=== PATIENT | male | born 1955 | race Caucasian/White ===

== ENCOUNTER → 2018-04-10 14:38 | Outpatient (CLI) | payer OTHER, SELFPAY ==
--- NOTE | 2018-04-10 14:42 | DI.RAD.S_ITS ---
PROCEDURE: XR KNEE LT 3V INDICATIONS: left knee pain TECHNIQUE: 3 views of the knee were acquired. COMPARISON: [facility], , KNEE 3V RIGHT, 07/12/2006, 10:01. [facility], , KNEE 3V LEFT, 07/12/2006, 9:59. FINDINGS: Bones: No fractures or dislocations. No suspicious bony lesions. Soft tissues: No joint effusion. No suspicious soft tissue calcifications. IMPRESSION: No trauma found, source of current symptoms is not seen. Dictated by: Ed Katz M.D. on 04/10/2018 at 16:04 Approved by: Ed Katz M.D. on 04/10/2018 at 16:04
== END ==
PROVIDERS: Family Provider Family Medicine; PCP Family Medicine; Visit Provider Family Medicine
DX: M25.562 Pain in left knee (principal)
CPT/HCPCS: 73562

== ENCOUNTER → 2018-05-03 12:41 | Outpatient (CLI) | payer OTHER, SELFPAY ==
--- NOTE | 2018-05-03 12:43 | DI.RAD.S_ITS ---
PROCEDURE: XR CHEST 2V INDICATIONS: cough TECHNIQUE: 2 views of the chest were acquired. COMPARISON: None. FINDINGS: Surgical changes and devices: None. Lungs and pleura: Lungs are clear. No pleural effusions or pneumothorax. Mediastinum: Mediastinal contours are normal. Heart size is normal. Bones and chest wall: No suspicious bony abnormalities. Soft tissues appear unremarkable. IMPRESSION: Normal chest. Dictated by: Shaina Aranda M.D. on 05/03/2018 at 15:07 Approved by: Shaina Aranda M.D. on 05/03/2018 at 15:08
== END ==
PROVIDERS: Family Provider Family Medicine; PCP Family Medicine; Visit Provider Physician Assistant
DX: R05 Cough (principal)
CPT/HCPCS: 71046

== ENCOUNTER 2018-07-01 12:15 | Outpatient (RCR) | payer OTHER, SELFPAY ==
--- NOTE | 2018-05-15 11:00 | PT.OPPOC ---
Current Diagnoses Pain in left knee (05/15/18) Provider Visit Care Team Role Provider Type Emre Smith MD Attending Provider Physician Primary Care Provider Specialty: Family Practice Address: [address] [place] [address], [facility] Email: [email or web address] Plan Of Care PT-OP-T Assessment and Plan Start: 05/15/18 10:25 Freq: Status: Active Protocol: Document 05/15/18 10:27 ELENA (Rec: 05/15/18 10:29 ELENA [id number]) Physical Therapy Assessment Rehab Potential Rehabilitation Potential Good Evaluation Complexity Number of Personal Factors/Comorbidities 1-2 Number of Body Systems Impaired 1-2 Clinical Presentation at Evaluation Stable Impairments Impairments Activity Tolerance Functional Mobility Gait Pain ROM Soft Tissue Mobility Strength Goals Four Impairment Impaired stairs descent Inspector Ball Points Goal (LTG) Patient will descend stairs with alternating steps with no difficulty LTG Duration 4 wks Three Impairment Impaired distance ambulation tolerance Long-Term Goal (LTG) Patient will ambulate > 4 miles per day with no increase to left knee symptoms. LTG Duration 4 wks Two Impairment Impaired muscular flexibility Inspector Ball Points Goal (LTG) Patient will exhibit no flexibility limitation to both quads to decrease muscular imbalance for patellar tracking improvement LTG Duration 4 wks One Impairment No HEP in place Inspector Ball Points Goal (LTG) Patient will learn independent home exercise program LTG Duration 3 wks Assessment Summary Assessment Pleasant 63 y/o M patient with a referring diagnosis of left knee pain presented today with gait difficulty due to left knee pain. Assessment reveals tight both quads, decreased stance phase to left LE, difficulty with functional single leg squat, and positive with Castro's tests (Patellofemoral joint dysfunction). Due to above mentioned dysfunction, patient unable to perform long distance mobility which is supposed to be normal to his age. In my professional opinion, patient would benefit with skilled PT to improve patient's quality of life. Physical Therapy Plan Frequency and Duration Frequency of Treatment 1x/Week Duration of Treatment 6 wks Plan of Care Start Date 05/15/18 Plan of Care End Date 06/26/18 Therapeutic Interventions Therapeutic Interventions Gait Training Joint Mobilizations Manual Therapy Patient/Caregiver Education Self-Care/Home Management Soft Tissue Mobilization Taping Therapeutic Exercises Modalities Cold Pack/Ice Massage Electric Stimulation Hot Packs Next Visit Focus/Plan Next Note Type Treatment Note Next Visit Plan Review HEP. Strengthen both knees, flexibility exercises Plan of Care Dates Plan of Care Start Date 05/15/18 Plan of Care End Date 06/26/18 Please Sign and Return: I have reviewed this Plan of Care and certify that the skilled therapy services above are required to meet the patient?s needs. Physician Signature Date Printed Name and Credentials Clinical Instructor Signature Printed Name and Credentials
--- NOTE | 2018-05-15 11:00 | PT.OIE ---
Current Diagnoses Pain in left knee (05/15/18) Provider Visit Care Team Role Provider Type Emre Smith MD Attending Provider Physician Primary Care Provider Specialty: [facility] Address: [address] [place] [address], [facility] Email: [email or web address] Physical Therapy Initial Evaluation PT-OP-A Visit Information Start: 05/15/18 10:25 Freq: Status: Active Protocol: Document 05/15/18 17:00 EA (Rec: 05/15/18 17:09 EA [id number]) Out-Patient Physical Therapy Visit Information Visit Information Visit Type Initial Evaluation Visit Start Time 10:30 Visit Stop Time 11:10 Total Visit Minutes 40 Visit Number 1 Evaluation Information Evaluation Date 05/15/18 PT-OP-B Current Condition Start: 05/15/18 10:25 Freq: Status: Active Protocol: Document 05/15/18 10:30 EA (Rec: 05/19/18 07:47 EA [id number]) Current Condition History of Current Condition Onset Date Mid summer Current Complaints Localized left knee pain History of Current Condition Present complaint of left knee pain started in the mid summer when patient aggressively increased distance walking to more than five miles per day. Pt reports recalled injury to right knee during his 20's with no recalled surgery to both knees . He reported pain initially tolerable but gradually increased anytime he put miles of walking. He noticed difficulty of bending and extending the knee and feels swelling was inside but not obvious outside. Pt reports recent X-ray show no significant problem. Prior Treatments and Tests X-ray a month ago with no significant findings. Future Testing and Treatments Planned None identifiable. Treatment Goals Patient/Caregiver Goals Patient would like to be able to walk more than 4 miles with no increase of symptoms to left knee. 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 Baseline Function- Recreation/Hobbies Moderately active: Daily Yoga exercises Walks > 4 miles per day Current Functional Impairments (Reported) Functional Limitations- ADL's Independent with limitation to any activities that requires distance ambulation Functional Limitations- Mobility/Gait Unable to get back to > 4 miles of ambulation due to increase in pain Functional Limitations- Work/School No limitation at work but pain mostly increased with initiation of standing Functional Limitations- Recreation/ Unable to get back to distance Hobbies walking (> 4 miles/day) PT-OP-C Subjective Start: 05/15/18 10:25 Freq: Status: Active Protocol: Document 05/15/18 10:30 EA (Rec: 05/19/18 07:47 EA [id number]) OP-PT Subjective Patient Comments Patient Comments Patient reports he would like to get back to previous level of mobility; states pain to left knee limits his ability to enjoy outside walking. Patient Reported Progress Worse Patient Questionnaires Other Questionnaire Name and Score LEFS to fill up next visit PT-OP-E Functional Tests Start: 05/15/18 10:25 Freq: Status: Active Protocol: Document 05/15/18 10:30 EA (Rec: 05/19/18 08:09 EA [id number]) Functional Tests Other 1 Name of Test Single Leg squat Comment Right > 45 degrees with no difficulty. Left < 30deg with difficulty PT-OP-F Manual Assessment Start: 05/15/18 10:25 Freq: Status: Active Protocol: Document 05/15/18 10:27 EA (Rec: 05/15/18 15:12 EA [id number]) Manual Assessments Soft Tissue Assessment Soft Tissue Mobility Assessment Tightness to both quads Joint Mobility Assessment Joint Mobility Assessment joint tightness to left. PT-OP-G Mobility & Gait Start: 05/15/18 10:25 Freq: Status: Active Protocol: Document 05/15/18 10:27 EA (Rec: 05/15/18 15:12 EA [id number]) OP Gait Assessment Gait Gait Assistance Required: Independent Able to Maintain Weight Bearing Status Yes During Gait Comments Gait Comments Slight decreased stance phase to left Stair Climbing Evaluation Comments Stair Climbing Comments Difficulty during alternating descent. PT-OP-J Posture/Palpation/Skin Start: 05/15/18 10:25 Freq: Status: Active Protocol: Document 05/15/18 10:27 EA (Rec: 05/15/18 15:12 EA [id number]) Palpation Assessment Location One Palpation Location Left patella: crepitus with sharp pain with passive mobilization Palpation Findings Soft Tissue Tightness PT-OP-K Range of Motion Start: 05/15/18 10:25 Freq: Status: Active Protocol: Document 05/15/18 10:27 EA (Rec: 05/15/18 15:12 EA [id number]) Hip Goniometric Range of Motion Hip Measured in Degrees Right Active Hip ROM WFL Yes Left Active Hip ROM WFL Yes Knee Goniometric Range of Motion Knee Measured in Degrees Right Patient Position Prone Flexion Active (degrees) 95 Left Patient Position Prone Flexion Active (degrees) 85 Extension Active (degrees) 0 PT-OP-L Special Tests Start: 05/15/18 10:25 Freq: Status: Active Protocol: Document 05/15/18 10:27 EA (Rec: 05/15/18 15:12 EA [id number]) Special Tests Knee Special Tests Travis Chondromalacia Test Results - Valgus- 25 Degrees Test Results - Christie's Test Test Results - Hughston Pica Test Test Results - Patellar Grind Test Test Results left positive Barb Test Test Results - Castro's Sign Test Results left positive PT-OP-M Strength Start: 05/15/18 10:25 Freq: Status: Active Protocol: Document 05/15/18 10:27 EA (Rec: 05/15/18 15:12 EA [id number]) Knee Strength Knee Manual Muscle Testing Right Flexion (S2) 4+ Good+ Extension (L3) 4+ Good+ Left Flexion (S2) 4+ Good+ Extension (L3) 4+ Good+ PT-OP-Q Treatments Start: 05/15/18 10:25 Freq: Status: Active Protocol: Document 05/15/18 10:30 EA (Rec: 05/19/18 07:31 EA [id number]) Therapeutic Exercises Prone Exercises 1 Prone Exercise Name Quads stretch Side left Reps/Minutes x 30SH x 2 Standing Exercises 1 Standing Exercise Name wall squat: VMO activation Side bilateral Reps/Minutes x 12 reps Self-Care/Home Management Treatment Education Patient Education Home Exercise Program Joint Protection Pain Management PT-OP-T Assessment and Plan Start: 05/15/18 10:25 Freq: Status: Active Protocol: Document 05/15/18 10:27 EA (Rec: 05/15/18 10:29 EA [id number]) Physical Therapy Assessment Rehab Potential Rehabilitation Potential Good Evaluation Complexity Number of Personal Factors/Comorbidities 1-2 Number of Body Systems Impaired 1-2 Clinical Presentation at Evaluation Stable Impairments Impairments Activity Tolerance Functional Mobility Gait Pain ROM Soft Tissue Mobility Strength Goals Four Impairment Impaired stairs descent Pants Busheler Goal (LTG) Patient will descend stairs with alternating steps with no difficulty LTG Duration 4 wks Three Impairment Impaired distance ambulation tolerance Usp Goal (LTG) Patient will ambulate > 4 miles per day with no increase to left knee symptoms. LTG Duration 4 wks Two Impairment Impaired muscular flexibility Pants Busheler Goal (LTG) Patient will exhibit no flexibility limitation to both quads to decrease muscular imbalance for patellar tracking improvement LTG Duration 4 wks One Impairment No HEP in place Pants Busheler Goal (LTG) Patient will learn independent home exercise program LTG Duration 3 wks Assessment Summary Assessment Pleasant 63 y/o M patient with a referring diagnosis of left knee pain presented today with gait difficulty due to left knee pain. Assessment reveals tight both quads, decreased stance phase to left LE, difficulty with functional single leg squat, and positive with Castro's tests (Patellofemoral joint dysfunction). Due to above mentioned dysfunction, patient unable to perform long distance mobility which is supposed to be normal to his age. In my professional opinion, patient would benefit with skilled PT to improve patient's quality of life. Physical Therapy Plan Frequency and Duration Frequency of Treatment 1x/Week Duration of Treatment 6 wks Plan of Care Start Date 05/15/18 Plan of Care End Date 06/26/18 Therapeutic Interventions Therapeutic Interventions Gait Training Joint Mobilizations Manual Therapy Patient/Caregiver Education Self-Care/Home Management Soft Tissue Mobilization Taping Therapeutic Exercises Modalities Cold Pack/Ice Massage Electric Stimulation Hot Packs Next Visit Focus/Plan Next Note Type Treatment Note Next Visit Plan Review HEP. Strengthen both knees, flexibility exercises
--- NOTE | 2018-05-20 12:10 | PT.OTN ---
Current Diagnoses Pain in left knee (05/20/18) Physical Therapy Treatment Note PT-OP-A Visit Information Start: 05/15/18 10:25 Freq: Status: Active Protocol: Document 05/15/18 17:00 EA (Rec: 05/15/18 17:09 EA [id number]) Out-Patient Physical Therapy Visit Information Visit Information Visit Type Initial Evaluation Visit Start Time 10:30 Visit Stop Time 11:10 Total Visit Minutes 40 Visit Number 1 Evaluation Information Evaluation Date 05/15/18 PT-OP-B Current Condition Start: 05/15/18 10:25 Freq: Status: Active Protocol: Document 05/15/18 10:30 EA (Rec: 05/19/18 07:47 EA [id number]) Current Condition History of Current Condition Onset Date Mid summer Current Complaints Localized left knee pain History of Current Condition Present complaint of left knee pain started in the mid summer when patient aggressively increased distance walking to more than five miles per day. Pt reports recalled injury to right knee during his 20's with no recalled surgery to both knees . He reported pain initially tolerable but gradually increased anytime he put miles of walking. He noticed difficulty of bending and extending the knee and feels swelling was inside but not obvious outside. Pt reports recent X-ray show no significant problem. Prior Treatments and Tests X-ray a month ago with no significant findings. Future Testing and Treatments Planned None identifiable. Treatment Goals Patient/Caregiver Goals Patient would like to be able to walk more than 4 miles with no increase of symptoms to left knee. 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 Baseline Function- Recreation/Hobbies Moderately active: Daily Yoga exercises Walks > 4 miles per day Current Functional Impairments (Reported) Functional Limitations- ADL's Independent with limitation to any activities that requires distance ambulation Functional Limitations- Mobility/Gait Unable to get back to > 4 miles of ambulation due to increase in pain Functional Limitations- Work/School No limitation at work but pain mostly increased with initiation of standing Functional Limitations- Recreation/ Unable to get back to distance Hobbies walking (> 4 miles/day) PT-OP-C Subjective Start: 05/15/18 10:25 Freq: Status: Active Protocol: Document 05/20/18 08:10 EA (Rec: 05/20/18 08:15 EA [id number]) OP-PT Subjective Patient Comments Patient Comments Pt reports compliant with initial HEP. PT-OP-E Functional Tests Start: 05/15/18 10:25 Freq: Status: Active Protocol: Document 05/15/18 10:30 EA (Rec: 05/19/18 08:09 EA [id number]) Functional Tests Other 1 Name of Test Single Leg squat Comment Right > 45 degrees with no difficulty. Left < 30deg with difficulty PT-OP-F Manual Assessment Start: 05/15/18 10:25 Freq: Status: Active Protocol: Document 05/15/18 10:27 EA (Rec: 05/15/18 15:12 EA [id number]) Manual Assessments Soft Tissue Assessment Soft Tissue Mobility Assessment Tightness to both quads Joint Mobility Assessment Joint Mobility Assessment joint tightness to left. PT-OP-G Mobility & Gait Start: 05/15/18 10:25 Freq: Status: Active Protocol: Document 05/15/18 10:27 EA (Rec: 05/15/18 15:12 EA [id number]) OP Gait Assessment Gait Gait Assistance Required: Independent Able to Maintain Weight Bearing Status Yes During Gait Comments Gait Comments Slight decreased stance phase to left Stair Climbing Evaluation Comments Stair Climbing Comments Difficulty during alternating descent. PT-OP-J Posture/Palpation/Skin Start: 05/15/18 10:25 Freq: Status: Active Protocol: Document 05/15/18 10:27 EA (Rec: 05/15/18 15:12 EA [id number]) Palpation Assessment Location One Palpation Location Left patella: crepitus with sharp pain with passive mobilization Palpation Findings Soft Tissue Tightness PT-OP-K Range of Motion Start: 05/15/18 10:25 Freq: Status: Active Protocol: Document 05/15/18 10:27 EA (Rec: 05/15/18 15:12 EA [id number]) Hip Goniometric Range of Motion Hip Measured in Degrees Right Active Hip ROM WFL Yes Left Active Hip ROM WFL Yes Knee Goniometric Range of Motion Knee Measured in Degrees Right Patient Position Prone Flexion Active (degrees) 95 Left Patient Position Prone Flexion Active (degrees) 85 Extension Active (degrees) 0 PT-OP-L Special Tests Start: 05/15/18 10:25 Freq: Status: Active Protocol: Document 05/15/18 10:27 EA (Rec: 05/15/18 15:12 EA [id number]) Special Tests Knee Special Tests Travis Chondromalacia Test Results - Valgus- 25 Degrees Test Results - Christie's Test Test Results - Hughston Pica Test Test Results - Patellar Grind Test Test Results left positive Barb Test Test Results - Castro's Sign Test Results left positive PT-OP-M Strength Start: 05/15/18 10:25 Freq: Status: Active Protocol: Document 05/15/18 10:27 EA (Rec: 05/15/18 15:12 EA [id number]) Knee Strength Knee Manual Muscle Testing Right Flexion (S2) 4+ Good+ Extension (L3) 4+ Good+ Left Flexion (S2) 4+ Good+ Extension (L3) 4+ Good+ PT-OP-Q Treatments Start: 05/15/18 10:25 Freq: Status: Active Protocol: Document 05/20/18 08:10 EA (Rec: 05/20/18 08:15 EA [id number]) Cardio Equipment Recumbent Stepper (Sci-Fit) Duration (Minutes) 5 Resistance 3 Gym Equipment Cable Column (Body Solid) Leg Extension Resistance 20# Shuttle Recovery Unilateral Squats Resistance 50# Therapeutic Exercises Standing Exercises 4 Standing Exercise Name Quad stretch 3 Standing Exercise Name ITB/quads stretch: Half kneeling 2 Standing Exercise Name Lunges Reps/Minutes x 6 reps each 1 Standing Exercise Name wall squat: VMO activation Side bilateral Reps/Minutes x 12 reps PT-OP-R Modalities Start: 05/15/18 10:25 Freq: Status: Active Protocol: Document 05/20/18 08:10 EA (Rec: 05/20/18 08:15 EA [id number]) Electric Stimulation Electric Stimulation Interferential Current (IFC) Body Location left quads Intensity 17 Combined With Heat/Cold Cold Pack PT-OP-T Assessment and Plan Start: 05/15/18 10:25 Freq: Status: Active Protocol: Document 05/20/18 08:10 EA (Rec: 05/20/18 08:15 EA [id number]) Physical Therapy Assessment Assessment Summary Assessment Tolerated treatment well. Physical Therapy Plan Next Visit Focus/Plan Next Note Type Treatment Note Next Visit Plan Review HEP. Strengthen both knees, flexibility exercises
--- NOTE | 2018-06-11 11:08 | PT.OTN ---
Current Diagnoses Pain in left knee (06/11/18) Physical Therapy Treatment Note PT-OP-A Visit Information Start: 05/15/18 10:25 Freq: Status: Active Protocol: Document 06/11/18 10:28 EA (Rec: 06/11/18 10:31 EA [id number]) Out-Patient Physical Therapy Visit Information Visit Information Visit Type Treatment Note Visit Start Time 09:45 Visit Stop Time 10:40 Total Visit Minutes 53 PT-OP-B Current Condition Start: 05/15/18 10:25 Freq: Status: Active Protocol: Document 05/15/18 10:30 EA (Rec: 05/19/18 07:47 EA [id number]) Current Condition History of Current Condition Onset Date Mid summer Current Complaints Localized left knee pain History of Current Condition Present complaint of left knee pain started in the mid summer when patient aggressively increased distance walking to more than five miles per day. Pt reports recalled injury to right knee during his 20's with no recalled surgery to both knees . He reported pain initially tolerable but gradually increased anytime he put miles of walking. He noticed difficulty of bending and extending the knee and feels swelling was inside but not obvious outside. Pt reports recent X-ray show no significant problem. Prior Treatments and Tests X-ray a month ago with no significant findings. Future Testing and Treatments Planned None identifiable. Treatment Goals Patient/Caregiver Goals Patient would like to be able to walk more than 4 miles with no increase of symptoms to left knee. 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 Baseline Function- Recreation/Hobbies Moderately active: Daily Yoga exercises Walks > 4 miles per day Current Functional Impairments (Reported) Functional Limitations- ADL's Independent with limitation to any activities that requires distance ambulation Functional Limitations- Mobility/Gait Unable to get back to > 4 miles of ambulation due to increase in pain Functional Limitations- Work/School No limitation at work but pain mostly increased with initiation of standing Functional Limitations- Recreation/ Unable to get back to distance Hobbies walking (> 4 miles/day) PT-OP-C Subjective Start: 05/15/18 10:25 Freq: Status: Active Protocol: Document 06/11/18 10:28 EA (Rec: 06/11/18 10:31 EA [id number]) OP-PT Subjective Patient Comments Patient Comments Pt reports left is feeling much better. PT-OP-E Functional Tests Start: 05/15/18 10:25 Freq: Status: Active Protocol: Document 05/15/18 10:30 EA (Rec: 05/19/18 08:09 EA [id number]) Functional Tests Other 1 Name of Test Single Leg squat Comment Right > 45 degrees with no difficulty. Left < 30deg with difficulty PT-OP-F Manual Assessment Start: 05/15/18 10:25 Freq: Status: Active Protocol: Document 05/15/18 10:27 EA (Rec: 05/15/18 15:12 EA [id number]) Manual Assessments Soft Tissue Assessment Soft Tissue Mobility Assessment Tightness to both quads Joint Mobility Assessment Joint Mobility Assessment joint tightness to left. PT-OP-G Mobility & Gait Start: 05/15/18 10:25 Freq: Status: Active Protocol: Document 05/15/18 10:27 EA (Rec: 05/15/18 15:12 EA [id number]) OP Gait Assessment Gait Gait Assistance Required: Independent Able to Maintain Weight Bearing Status Yes During Gait Comments Gait Comments Slight decreased stance phase to left Stair Climbing Evaluation Comments Stair Climbing Comments Difficulty during alternating descent. PT-OP-J Posture/Palpation/Skin Start: 05/15/18 10:25 Freq: Status: Active Protocol: Document 05/15/18 10:27 EA (Rec: 05/15/18 15:12 EA [id number]) Palpation Assessment Location One Palpation Location Left patella: crepitus with sharp pain with passive mobilization Palpation Findings Soft Tissue Tightness PT-OP-K Range of Motion Start: 05/15/18 10:25 Freq: Status: Active Protocol: Document 05/15/18 10:27 EA (Rec: 05/15/18 15:12 EA [id number]) Hip Goniometric Range of Motion Hip Measured in Degrees Right Active Hip ROM WFL Yes Left Active Hip ROM WFL Yes Knee Goniometric Range of Motion Knee Measured in Degrees Right Patient Position Prone Flexion Active (degrees) 95 Left Patient Position Prone Flexion Active (degrees) 85 Extension Active (degrees) 0 PT-OP-L Special Tests Start: 05/15/18 10:25 Freq: Status: Active Protocol: Document 05/15/18 10:27 EA (Rec: 05/15/18 15:12 EA [id number]) Special Tests Knee Special Tests Travis Chondromalacia Test Results - Valgus- 25 Degrees Test Results - Christie's Test Test Results - Hughston Pica Test Test Results - Patellar Grind Test Test Results left positive Barb Test Test Results - Castro's Sign Test Results left positive PT-OP-M Strength Start: 05/15/18 10:25 Freq: Status: Active Protocol: Document 05/15/18 10:27 EA (Rec: 05/15/18 15:12 EA [id number]) Knee Strength Knee Manual Muscle Testing Right Flexion (S2) 4+ Good+ Extension (L3) 4+ Good+ Left Flexion (S2) 4+ Good+ Extension (L3) 4+ Good+ PT-OP-Q Treatments Start: 05/15/18 10:25 Freq: Status: Active Protocol: Document 06/11/18 10:28 EA (Rec: 06/11/18 10:31 EA [id number]) Cardio Equipment Recumbent Stepper (Sci-Fit) Duration (Minutes) 5 Resistance 3 Gym Equipment Cable Column (Body Solid) Leg Extension Resistance 20-50# Shuttle Recovery Unilateral Squats Resistance 75# Therapeutic Exercises Prone Exercises 1 Prone Exercise Name Quads stretch Side left Reps/Minutes x 30SH x 2 Standing Exercises 4 Standing Exercise Name Quad stretch 3 Standing Exercise Name ITB/quads stretch: Half kneeling 2 Standing Exercise Name Lunges Reps/Minutes x 6 reps each 1 Standing Exercise Name wall squat: VMO activation Side bilateral Reps/Minutes x 12 reps PT-OP-R Modalities Start: 05/15/18 10:25 Freq: Status: Active Protocol: Document 06/11/18 10:28 EA (Rec: 06/11/18 10:31 EA [id number]) Electric Stimulation Electric Stimulation Interferential Current (IFC) Body Location left quads Intensity 17 Combined With Heat/Cold Cold Pack PT-OP-T Assessment and Plan Start: 05/15/18 10:25 Freq: Status: Active Protocol: Document 06/11/18 10:28 EA (Rec: 06/11/18 10:31 EA [id number]) Physical Therapy Assessment Assessment Summary Assessment Pt tolerated treatment well. Nted difficulty with lunges and squat forms but able to correct with feed back. Physical Therapy Plan Next Visit Focus/Plan Next Note Type Treatment Note Next Visit Plan Advance as tolerated.
--- NOTE | 2018-07-01 17:30 | PT.OPPOC ---
Current Diagnoses Pain in left knee (07/01/18) Provider Visit Care Team Role Provider Type Emre Smith MD Attending Provider Physician Primary Care Provider Specialty: Family Practice Address: [address] [place] [address], [id number] Email: [email or web address] Plan Of Care PT-OP-T Assessment and Plan Start: 05/15/18 10:25 Freq: Status: Active Protocol: Document 07/01/18 17:11 EA (Rec: 07/01/18 17:21 EA [id number]) Physical Therapy Assessment Impairments Impairments Activity Tolerance Functional Mobility Gait Pain ROM Soft Tissue Mobility Strength Goals Four Impairment Impaired stairs descent Entry Level Automotive 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 LTG Duration 4 wks (excellent improvement) Two Impairment Impaired muscular flexibility Entry Level Automotive Technician Goal (LTG) Patient will exhibit no flexibility limitation to both quads to decrease muscular imbalance for patellar tracking improvement LTG Duration 4 wks (excellent improvement One Impairment No HEP in place Group Home Goal (LTG) Patient will learn independent home exercise program LTG Duration Goal reached Assessment Summary Assessment Improved right LE functional strength and flexibility with ability to tolerate long walk with no increased of symptoms. Patient will continue to benefit with skilled PT addressing independent HEP and progressive quads strengthening. Physical Therapy Plan Frequency and Duration Frequency of Treatment 1x/Week Duration of Treatment 6 wks Plan of Care Start Date 07/01/18 Plan of Care End Date 08/12/18 Therapeutic Interventions Therapeutic Interventions Gait Training Joint Mobilizations Manual Therapy Patient/Caregiver Education Self-Care/Home Management Soft Tissue Mobilization Taping Therapeutic Exercises Modalities Cold Pack/Ice Massage Electric Stimulation Hot Packs Next Visit Focus/Plan Next Note Type Treatment Note Next Visit Plan Advance as tolerated. Plan of Care Dates Plan of Care Start Date 07/01/18 Plan of Care End Date 08/12/18 Please Sign and Return: I have reviewed this Plan of Care and certify that the skilled therapy services above are required to meet the patient?s needs. Physician Signature Date Printed Name and Credentials Clinical Instructor Signature Printed Name and Credentials
--- NOTE | 2018-07-01 17:30 | PT.OTRE ---
Current Diagnoses Pain in left knee (07/01/18) Provider Visit Care Team Role Provider Type Emre Smith MD Attending Provider Physician Primary Care Provider Specialty: [facility] Practice Address: [address] [place] [address], [facility] Email: [email or web address] Physical Therapy Re-Evaluation PT-OP-A Visit Information Start: 05/15/18 10:25 Freq: Status: Active Protocol: Document 07/01/18 17:11 EA (Rec: 07/01/18 17:21 EA [id number]) Out-Patient Physical Therapy Visit Information Visit Information Visit Type Treatment Note Visit Note Re-eval performed to this date Visit Start Time 12:15 Visit Stop Time 13:10 Total Visit Minutes 55 PT-OP-B Current Condition Start: 05/15/18 10:25 Freq: Status: Active Protocol: Document 05/15/18 10:30 EA (Rec: 05/19/18 07:47 EA [id number]) Current Condition History of Current Condition Onset Date Mid summer Current Complaints Localized left knee pain History of Current Condition Present complaint of left knee pain started in the mid summer when patient aggressively increased distance walking to more than five miles per day. Pt reports recalled injury to right knee during his 20's with no recalled surgery to both knees . He reported pain initially tolerable but gradually increased anytime he put miles of walking. He noticed difficulty of bending and extending the knee and feels swelling was inside but not obvious outside. Pt reports recent X-ray show no significant problem. Prior Treatments and Tests X-ray a month ago with no significant findings. Future Testing and Treatments Planned None identifiable. Treatment Goals Patient/Caregiver Goals Patient would like to be able to walk more than 4 miles with no increase of symptoms to left knee. 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 Baseline Function- Recreation/Hobbies Moderately active: Daily Yoga exercises Walks > 4 miles per day Current Functional Impairments (Reported) Functional Limitations- ADL's Independent with limitation to any activities that requires distance ambulation Functional Limitations- Mobility/Gait Unable to get back to > 4 miles of ambulation due to increase in pain Functional Limitations- Work/School No limitation at work but pain mostly increased with initiation of standing Functional Limitations- Recreation/ Unable to get back to distance Hobbies walking (> 4 miles/day) PT-OP-C Subjective Start: 05/15/18 10:25 Freq: Status: Active Protocol: Document 07/01/18 17:22 EA (Rec: 07/01/18 17:25 EA [id number]) OP-PT Subjective Patient Comments Patient Comments Pt reports right knee is much improving; states strength improves and symptoms is much less. Patient Reported Progress Improving Patient Questionnaires Lower Extremity Functional Scale LEFS Score 59 LEFS Impairment 20 to 39% Impaired (Score 48- 62) PT-OP-E Functional Tests Start: 05/15/18 10:25 Freq: Status: Active Protocol: Document 07/01/18 17:11 EA (Rec: 07/01/18 17:21 EA [id number]) Functional Tests Other 1 Name of Test Single Leg squat Comment Right > 45 degrees with no difficulty. Left < 30deg with slight difficulty PT-OP-F Manual Assessment Start: 05/15/18 10:25 Freq: Status: Active Protocol: Document 05/15/18 10:27 EA (Rec: 05/15/18 15:12 EA [id number]) Manual Assessments Soft Tissue Assessment Soft Tissue Mobility Assessment Tightness to both quads Joint Mobility Assessment Joint Mobility Assessment joint tightness to left. PT-OP-G Mobility & Gait Start: 05/15/18 10:25 Freq: Status: Active Protocol: Document 05/15/18 10:27 EA (Rec: 05/15/18 15:12 EA [id number]) OP Gait Assessment Gait Gait Assistance Required: Independent Able to Maintain Weight Bearing Status Yes During Gait Comments Gait Comments Slight decreased stance phase to left Stair Climbing Evaluation Comments Stair Climbing Comments Difficulty during alternating descent. PT-OP-J Posture/Palpation/Skin Start: 05/15/18 10:25 Freq: Status: Active Protocol: Document 05/15/18 10:27 EA (Rec: 05/15/18 15:12 EA [id number]) Palpation Assessment Location One Palpation Location Left patella: crepitus with sharp pain with passive mobilization Palpation Findings Soft Tissue Tightness PT-OP-K Range of Motion Start: 05/15/18 10:25 Freq: Status: Active Protocol: Document 05/15/18 10:27 EA (Rec: 05/15/18 15:12 EA [id number]) Hip Goniometric Range of Motion Hip Measured in Degrees Right Active Hip ROM WFL Yes Left Active Hip ROM WFL Yes Knee Goniometric Range of Motion Knee Measured in Degrees Right Patient Position Prone Flexion Active (degrees) 95 Left Patient Position Prone Flexion Active (degrees) 85 Extension Active (degrees) 0 PT-OP-L Special Tests Start: 05/15/18 10:25 Freq: Status: Active Protocol: Document 05/15/18 10:27 EA (Rec: 05/15/18 15:12 EA [id number]) Special Tests Knee Special Tests Travis Chondromalacia Test Results - Valgus- 25 Degrees Test Results - Christie's Test Test Results - Hughston Pica Test Test Results - Patellar Grind Test Test Results left positive Barb Test Test Results - Castro's Sign Test Results left positive PT-OP-M Strength Start: 05/15/18 10:25 Freq: Status: Active Protocol: Document 07/01/18 17:11 EA (Rec: 07/01/18 17:21 EA [id number]) Knee Strength Knee Manual Muscle Testing Right Flexion (S2) 5 Normal Extension (L3) 5 Normal Left Flexion (S2) 5 Normal Extension (L3) 5 Normal PT-OP-Q Treatments Start: 05/15/18 10:25 Freq: Status: Active Protocol: Document 07/01/18 17:11 EA (Rec: 07/01/18 17:21 EA [id number]) Gym Equipment Cable Column (Body Solid) Leg Extension Resistance 50-70# Reps/Time x 3 sets Shuttle Recovery Unilateral Squats Resistance 75# Reps/Time x 12reps x 2 Therapeutic Exercises Prone Exercises 1 Prone Exercise Name Quads stretch Side left Reps/Minutes x 30SH x 2 Standing Exercises 4 Standing Exercise Name Quad stretch 3 Standing Exercise Name ITB/quads stretch: Half kneeling 2 Standing Exercise Name Lunges Reps/Minutes x 6 reps each, steady x 5 reps x 2 sets each 1 Standing Exercise Name wall squat: VMO activation Side bilateral Reps/Minutes x 12 reps x 2 sets PT-OP-R Modalities Start: 05/15/18 10:25 Freq: Status: Active Protocol: Document 07/01/18 17:11 EA (Rec: 07/01/18 17:21 EA [id number]) Electric Stimulation Electric Stimulation Interferential Current (IFC) Body Location left quads Intensity 17 Combined With Heat/Cold Hot Pack PT-OP-T Assessment and Plan Start: 05/15/18 10:25 Freq: Status: Active Protocol: Document 07/01/18 17:11 EA (Rec: 07/01/18 17:21 EA [id number]) Physical Therapy Assessment Impairments Impairments Activity Tolerance Functional Mobility Gait Pain ROM Soft Tissue Mobility Strength Goals Four Impairment Impaired stairs descent Varnish Melter Goal (LTG) Patient will descend stairs with alternating steps with no difficulty LTG Duration 4 wks (goal reached) Three Impairment Impaired distance ambulation tolerance Snf Goal (LTG) Patient will ambulate > 4 miles per day with no increase to left knee symptoms. LTG Duration 4 wks (excellent improvement) Two Impairment Impaired muscular flexibility Varnish Melter Goal (LTG) Patient will exhibit no flexibility limitation to both quads to decrease muscular imbalance for patellar tracking improvement LTG Duration 4 wks (excellent improvement One Impairment No HEP in place Varnish Melter Goal (LTG) Patient will learn independent home exercise program LTG Duration Goal reached Assessment Summary Assessment Improved right LE functional strength and flexibility with ability to tolerate long walk with no increased of symptoms. Patient will continue to benefit with skilled PT addressing independent HEP and progressive quads strengthening. Physical Therapy Plan Frequency and Duration Frequency of Treatment 1x/Week Duration of Treatment 6 wks Plan of Care Start Date 07/01/18 Plan of Care End Date 08/12/18 Therapeutic Interventions Therapeutic Interventions Gait Training Joint Mobilizations Manual Therapy Patient/Caregiver Education Self-Care/Home Management Soft Tissue Mobilization Taping Therapeutic Exercises Modalities Cold Pack/Ice Massage Electric Stimulation Hot Packs Next Visit Focus/Plan Next Note Type Treatment Note Next Visit Plan Advance as tolerated.
--- NOTE | 2018-10-07 12:24 | PT.OPDS ---
Current Diagnoses Pain in left knee (07/01/18) Provider Visit Care Team Role Provider Type Emre Smith MD Attending Provider Physician Primary Care Provider Specialty: [facility][1] Address: [address] [place] [address], [facility] Email: [email or web address] Visit Number Visit Number 1 Discharge Summary PT-OP-B Current Condition Start: 05/15/18 10:25 Freq: Status: Active Protocol: Document 05/15/18 10:30 EA (Rec: 05/19/18 07:47 EA [id number]) Current Condition History of Current Condition Onset Date Mid summer Current Complaints Localized left knee pain History of Current Condition Present complaint of left knee pain started in the mid summer when patient aggressively increased distance walking to more than five miles per day. Pt reports recalled injury to right knee during his 20's with no recalled surgery to both knees . He reported pain initially tolerable but gradually increased anytime he put miles of walking. He noticed difficulty of bending and extending the knee and feels swelling was inside but not obvious outside. Pt reports recent X-ray show no significant problem. Prior Treatments and Tests X-ray a month ago with no significant findings. Future Testing and Treatments Planned None identifiable. Treatment Goals Patient/Caregiver Goals Patient would like to be able to walk more than 4 miles with no increase of symptoms to left knee. 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 Baseline Function- Recreation/Hobbies Moderately active: Daily Yoga exercises Walks > 4 miles per day Current Functional Impairments (Reported) Functional Limitations- ADL's Independent with limitation to any activities that requires distance ambulation Functional Limitations- Mobility/Gait Unable to get back to > 4 miles of ambulation due to increase in pain Functional Limitations- Work/School No limitation at work but pain mostly increased with initiation of standing Functional Limitations- Recreation/ Unable to get back to distance Hobbies walking (> 4 miles/day) PT-OP-C Subjective Start: 05/15/18 10:25 Freq: Status: Active Protocol: Document 10/07/18 12:21 EA (Rec: 10/07/18 12:24 EA [id number]) OP-PT Subjective Patient Comments Patient Comments Pt reports by phone today and states he has been actively doing high level of activity with no increase of symptoms. He agreed to discharge today and aware to obtain another referral as needed to [facility]. Patient Reported Progress Improving PT-OP-E Functional Tests Start: 05/15/18 10:25 Freq: Status: Active Protocol: Document 07/01/18 17:11 EA (Rec: 07/01/18 17:21 EA [id number]) Functional Tests Other 1 Name of Test Single Leg squat Comment Right > 45 degrees with no difficulty. Left < 30deg with slight difficulty PT-OP-F Manual Assessment Start: 05/15/18 10:25 Freq: Status: Active Protocol: Document 05/15/18 10:27 EA (Rec: 05/15/18 15:12 EA [id number]) Manual Assessments Soft Tissue Assessment Soft Tissue Mobility Assessment Tightness to both quads Joint Mobility Assessment Joint Mobility Assessment joint tightness to left. PT-OP-G Mobility & Gait Start: 05/15/18 10:25 Freq: Status: Active Protocol: Document 05/15/18 10:27 EA (Rec: 05/15/18 15:12 EA [id number]) OP Gait Assessment Gait Gait Assistance Required: Independent Able to Maintain Weight Bearing Status Yes During Gait Comments Gait Comments Slight decreased stance phase to left Stair Climbing Evaluation Comments Stair Climbing Comments Difficulty during alternating descent. PT-OP-J Posture/Palpation/Skin Start: 05/15/18 10:25 Freq: Status: Active Protocol: Document 05/15/18 10:27 EA (Rec: 05/15/18 15:12 EA [id number]) Palpation Assessment Location One Palpation Location Left patella: crepitus with sharp pain with passive mobilization Palpation Findings Soft Tissue Tightness PT-OP-K Range of Motion Start: 05/15/18 10:25 Freq: Status: Active Protocol: Document 05/15/18 10:27 EA (Rec: 05/15/18 15:12 EA [id number]) Hip Goniometric Range of Motion Hip Right Active Hip ROM WFL Yes Left Active Hip ROM WFL Yes Knee Goniometric Range of Motion Knee Right Patient Position Prone Flexion Active (degrees) 95 Left Patient Position Prone Flexion Active (degrees) 85 Extension Active (degrees) 0 PT-OP-L Special Tests Start: 05/15/18 10:25 Freq: Status: Active Protocol: Document 05/15/18 10:27 EA (Rec: 05/15/18 15:12 EA [id number]) Special Tests Knee Special Tests Travis Chondromalacia Test Results - Valgus- 25 Degrees Test Results - Christie's Test Test Results - Hughston Pica Test Test Results - Patellar Grind Test Test Results left positive Barb Test Test Results - Castro's Sign Test Results left positive PT-OP-M Strength Start: 05/15/18 10:25 Freq: Status: Active Protocol: Document 07/01/18 17:11 EA (Rec: 07/01/18 17:21 EA [id number]) Knee Strength Knee Manual Muscle Testing Right Flexion (S2) 5 Normal Extension (L3) 5 Normal Left Flexion (S2) 5 Normal Extension (L3) 5 Normal PT-OP-T Assessment and Plan Start: 05/15/18 10:25 Freq: Status: Active Protocol: Document 10/07/18 12:21 EA (Rec: 10/07/18 12:24 EA [id number]) Physical Therapy Assessment Assessment Summary Assessment Patient is discharge today with excellent recovery per patient. Physical Therapy Plan Next Visit Focus/Plan Next Note Type Discharge Summary
== END 2018-10-09 13:11 | disposition home or self-care (01) ==
LOC: PHYS 12:15
PROVIDERS: PCP Family Medicine; Visit Provider Family Medicine
DX: M25.562 Pain in left knee (principal)
CPT/HCPCS: 97014; 97110; 97161; 97535; G0283

== ENCOUNTER → 2018-08-18 16:43 | Outpatient (CLI) | payer OTHER, SELFPAY ==
--- NOTE | 2018-08-18 16:45 | DI.RAD.S_ITS ---
PROCEDURE: XR FINGER RT MIN 2V INDICATIONS: right thumb pain TECHNIQUE: AP hand, 2 views of the 1st finger(s) acquired. COMPARISON: None. FINDINGS: Bones: There is a fracture seen along the radial aspect of the proximal portion of the proximal phalanx of the right thumb. This fracture demonstrates a subacute appearance, with partial healing. No acute fractures can be seen. Degenerative changes are seen, which are overall most prominent involving the 1st metacarpophalangeal joint. No suspicious bony lesions. Soft tissues: Generalized soft tissue swelling is seen. No suspicious soft tissue calcifications. IMPRESSION: Remote appearing fracture at the base of the proximal phalanx of the thumb. Age-appropriate degenerative changes are seen. Generalized soft tissue swelling is seen. If there is strong suspicion for developing osteomyelitis, please consider a dedicated MRI with contrast for further evaluation (assuming that there is no contraindication to MRI). Dictated by: Cb Sellers M.D. on 08/18/2018 at 15:56 Approved by: Cb Sellers M.D. on 08/18/2018 at 15:57
== END ==
PROVIDERS: Visit Provider Physician Assistant
DX: M79.644 Pain in right finger(s) (principal); M79.89 Other specified soft tissue disorders
CPT/HCPCS: 73140

== ENCOUNTER → 2019-09-14 11:41 | Outpatient (CLI) | payer OTHER, SELFPAY ==
[2019-09-14 12:52] LABS: Add Manual Diff / Slide Review NO; Basophils Absolute Auto 0 /uL (0-100); Basophils Percent Auto 0.3 % (0-2); Eosinophils Absolute Auto 100 /uL (0-450); Eosinophils Percent Auto 1.2 % (2-4); Hematocrit 46.2 % (41-53); Hemoglobin 16.3 g/dL (13.5-17.5); Lymphocytes Absolute Auto 2200 /uL (1100-4500); Lymphocytes Percent Auto 35.9 % (25-40); Mean Corpuscular HGB Conc 35.3 % (30-36); Mean Corpuscular Hemoglobin 30.9 PG (26-34); Mean Corpuscular Volume 87.5 fL (80-100); Monocytes Absolute Auto 500 /uL (0-900); Monocytes Percent Auto 7.4 % (3-14); Neutrophils Absolute Auto 3400 /uL (1500-7000); Neutrophils Percent Auto 55.2 % (50-75); Platelet Count 143 X10^3/uL (150-400); Red Blood Cell Count 5.27 X10^6/uL (4.5-5.9); Red Cell Distribution Width 12.4 % (11.6-14.8); White Blood Cell Count 6.2 X10^3/uL (4.5-11.0)
[2019-09-14 13:21] LABS: Alanine Aminotransferase 20 IU/L (<50); Albumin 4.3 g/dL (3.5-5.0); Albumin Globulin Ratio 1.5 (1.0-2.8); Alkaline Phosphatase 47 U/L (38-126); Aspartate Aminotransferase 24 IU/L (17-59); BUN Creatinine Ratio 22.4 (6-22); Bilirubin Total 0.8 mg/dL (0.2-1.3); Blood Urea Nitrogen 17 mg/dL (9-20); Calcium 9.3 mg/dL (8.4-10.2); Carbon Dioxide 28 mmol/L (22-32); Chloride 107 mmol/L (98-107); Cholesterol 198 mg/dL (140-199); Estimated Glomerular Filt Rate > 60.0 mL/min (>60); Globulin 2.8 g/dL (1.7-4.1); Glucose 99 mg/dL (80-110); HDL Cholesterol 34 mg/dL (40-60); HEMOLYSIS < 15 (0-50); LDL Cholesterol Calculated 134 mg/dL (<100); Potassium 3.8 mmol/L (3.4-5.1); Sodium 141 mmol/L (137-145); Total Protein 7.1 g/dL (6.3-8.2); Triglycerides 150 mg/dL (35-150)
[2019-09-14 13:47] LABS: Prostate Specific Antigen Scrn 0.477 ng/mL (0.1-4.0)
== END ==
PROVIDERS: PCP Family Medicine; Referring Provider Family Medicine; Visit Provider Family Medicine
DX: I10 Essential (primary) hypertension (principal); Z12.5 Encounter for screening for malignant neoplasm of prostate
CPT/HCPCS: 36415; 80053; 80061; 85025; G0103

== ENCOUNTER → 2020-08-05 10:12 | Outpatient (CLI) | payer OTHER, SELFPAY ==
[2020-08-05] MEDS: COVID-19 VACC, Ad26(JANSSEN)/PF 0.5 ML IM (10:15)
== END ==
PROVIDERS: PCP Internal Medicine; Visit Provider Internal Medicine
DX: Z23 Encounter for immunization (principal)
CPT/HCPCS: 0031A; 91303

== ENCOUNTER → 2020-09-10 09:22 | Outpatient (CLI) | payer OTHER, SELFPAY ==
[2020-09-10 10:41] LABS: Alanine Aminotransferase 45 IU/L (<50); Albumin 4.1 g/dL (3.5-5.0); Albumin Globulin Ratio 1.5 (1.0-2.8); Alkaline Phosphatase 51 U/L (38-126); Aspartate Aminotransferase 36 IU/L (17-59); Bilirubin Total 0.9 mg/dL (0.2-1.3); Blood Urea Nitrogen 19 mg/dL (9-20); Calcium 9.2 mg/dL (8.4-10.2); Carbon Dioxide 25 mmol/L (22-32); Chloride 108 mmol/L (98-107); Cholesterol 197 mg/dL (140-199); Estimated Glomerular Filt Rate > 60.0 mL/min (>60); Globulin 2.8 g/dL (1.7-4.1); Glucose 103 mg/dL (80-110); HDL Cholesterol 36 mg/dL (40-60); HEMOLYSIS < 15 (0-50); LDL Cholesterol Calculated 138 mg/dL (<100); Potassium 3.8 mmol/L (3.4-5.1); Sodium 139 mmol/L (137-145); Total Protein 6.9 g/dL (6.3-8.2); Triglycerides 115 mg/dL (35-150)
[2020-09-10 11:08] LABS: Prostate Specific Antigen Scrn 0.437 ng/mL (0.1-4.0)
== END ==
PROVIDERS: PCP Internal Medicine; Referring Provider Internal Medicine; Visit Provider Internal Medicine
DX: I10 Essential (primary) hypertension (principal); K22.70 Barrett's esophagus without dysplasia; G25.0 Essential tremor; Z12.5 Encounter for screening for malignant neoplasm of prostate
CPT/HCPCS: 36415; 80053; 80061; G0103

== ENCOUNTER → 2021-11-13 09:38 | Outpatient (CLI) | payer OTHER, SELFPAY ==
[2021-11-13 10:43] LABS: Blood Urea Nitrogen 19 mg/dL (9-20); Calcium 9.1 mg/dL (8.4-10.2); Carbon Dioxide 29 mmol/L (22-32); Chloride 106 mmol/L (98-107); Estimated Glomerular Filt Rate > 60 mL/min (>60); Glucose 125 mg/dL (80-110); HEMOLYSIS < 15 (0-50); Potassium 3.5 mmol/L (3.4-5.1); Sodium 139 mmol/L (137-145)
[2021-11-13 11:14] LABS: Prostate Specific Antigen Scrn 0.673 ng/mL (0.1-4.0)
== END ==
PROVIDERS: PCP Internal Medicine; Referring Provider Internal Medicine; Visit Provider Internal Medicine
DX: G25.0 Essential tremor (principal); I10 Essential (primary) hypertension; Z12.5 Encounter for screening for malignant neoplasm of prostate
CPT/HCPCS: 36415; 80048; G0103

== ENCOUNTER 2021-12-12 11:51 | Emergency (ER) | payer OTHER, SELFPAY ==
[2021-12-12 12:00] VITALS: BP 215/105; PULSE 52; RESP 18; TEMP 36.9; O2SAT 97; BMI 29.8
--- NOTE | 2021-12-12 12:06 | DI.RAD.S_ITS ---
PROCEDURE: XR CHEST 1V INDICATIONS: chest pain TECHNIQUE: One view of the chest was acquired. COMPARISON: [facility], CR, XR CHEST 2V, 05/03/2018, 12:59. FINDINGS: Surgical changes and devices: None. Lungs and pleura: Mild appearance of increased pulmonary vascularity. No pleural effusions or pneumothorax. Mediastinum: Mediastinal contours appear normal. Heart size is normal. Bones and chest wall: No suspicious bony lesions. Overlying soft tissues appear unremarkable. IMPRESSION: Mild appearance of increased pulmonary vascularity possibly representing edema. Dictated by: Na Rios M.D. on 12/12/2021 at 12:45 Approved by: Na Rios M.D. on 12/12/2021 at 12:45
[2021-12-12 12:28] LABS: Add Manual Diff / Slide Review NO; Basophils Absolute Auto 0 /uL (0-100); Basophils Percent Auto 0.5 % (0-2); Eosinophils Absolute Auto 100 /uL (0-450); Eosinophils Percent Auto 1.7 % (2-4); Hematocrit 45.8 % (41-53); Hemoglobin 16.1 g/dL (13.5-17.5); Lymphocytes Absolute Auto 2300 /uL (1100-4500); Lymphocytes Percent Auto 29.7 % (25-40); Mean Corpuscular HGB Conc 35.1 % (30-36); Mean Corpuscular Hemoglobin 30.4 PG (26-34); Mean Corpuscular Volume 86.6 fL (80-100); Monocytes Absolute Auto 600 /uL (0-900); Monocytes Percent Auto 8.3 % (3-14); Neutrophils Absolute Auto 4500 /uL (1500-7000); Neutrophils Percent Auto 59.8 % (50-75); Platelet Count 152 X10^3/uL (150-400); Red Blood Cell Count 5.29 X10^6/uL (4.5-5.9); Red Cell Distribution Width 12.8 % (11.6-14.8); White Blood Cell Count 7.6 X10^3/uL (4.5-11.0)
[2021-12-12 12:43] LABS: INR 1.2 (0.9-1.3); Prothrombin Time 13.2 SECONDS (10.1-12.7)
[2021-12-12 12:45] LABS: PTT Partial Thromboplastin Tim 44 SECONDS (26-36)
[2021-12-12 12:49] LABS: Alanine Aminotransferase 17 IU/L (<50); Albumin 4.3 g/dL (3.5-5.0); Albumin Globulin Ratio 1.4 (1.0-2.8); Alkaline Phosphatase 53 U/L (38-126); Aspartate Aminotransferase 21 IU/L (17-59); BUN Creatinine Ratio 19.1 (6-22); Bilirubin Total 0.8 mg/dL (0.2-1.3); Blood Urea Nitrogen 18 mg/dL (9-20); Calcium 9.1 mg/dL (8.4-10.2); Carbon Dioxide 29 mmol/L (22-32); Chloride 104 mmol/L (98-107); Creatine Kinase 97 U/L (55-170); Estimated Glomerular Filt Rate > 60 mL/min (>60); Globulin 3.1 g/dL (1.7-4.1); Glucose 97 mg/dL (80-110); HEMOLYSIS < 15 (0-50); Lipase 165 U/L (23-300); Magnesium 2.3 mg/dL (1.6-2.3); Potassium 3.7 mmol/L (3.4-5.1); Sodium 139 mmol/L (137-145); Total Protein 7.4 g/dL (6.3-8.2)
--- NOTE | 2021-12-12 12:51 | PC.NURSE ---
no cardiac hx. pt states he was doing his morning workout and doing push ups when he got a heavy sharp pain in the back of the head. he rested x 1 hour. took bp which was in the 180's systolic. continues to have headache. denies CP SOB.
[2021-12-12 13:00] LABS: Troponin I < 0.012 ng/mL (0.01-0.034)
--- NOTE | 2021-12-12 13:33 | ED.GENADULT ---
HPI - General Adult General Chief complaint: Hypertension Stated complaint: High blood pressure Time Seen by Provider: 12/12/21 12:56 History of Present Illness HPI narrative: Patient is a 66-year-old male history of hypertension on atenolol and lisinopril presenting today with sudden headache. He says he was doing pushups he exercises regularly he does pushups regularly when he felt sudden pop in the back of his head and had headache. He checked his blood pressure was noted to be quite elevated and he came to the emergency department. He denies any chest pain palpitations shortness of breath. No numbness tingling or weakness. No nausea vomiting. He says this is not even the worst headache of his life. Previously he had a migraine in was under the covers for 3 days. Patient has event happened around 830 in the morning Related Data Previous Rx's Medication Instructions Recorded sildenafil (pulm.hypertension) 20 20 mg PO DAILY PRN sexual activity 09/07/21 mg tablet #30 tabs atenolol 25 mg tablet 25 mg PO DAILY #90 tabs 11/16/21 lisinopril 20 mg tablet 20 mg PO DAILY #90 tabs 11/16/21 primidone 50 mg tablet 50 mg PO BEDTIME #90 tabs 11/16/21 clotrimazole-betamethasone 1 1 applic topical BID 4 weeks #15 12/12/21 %-0.05 % topical cream grams Allergies Allergy/AdvReac Type Severity Reaction Status Date / Time azithromycin [AZITHROMYCIN] Allergy Mild rash Verified 11/16/21 15:59 Review of Systems Review of Systems Narrative: GENERAL: Denies chills, fatigue, malaise, fever, sweats, travel HEENT: Denies sinus pain, ear pain, sore throat, difficulty swallowing, neck pain RESPIRATORY: Denies dyspnea, cough, wheezing, hemoptysis, sputum. CARDIOVASCULAR: Denies chest pain, palpitations, orthopnea, edema GASTROINTESTINAL: Denies nausea, vomiting, abdominal pain, diarrhea, constipation, melena. : Denies dysuria, frequency, incontinence, hematuria, urinary retention, flank pain. MUSCULOSKELETAL: Denies weakness, joint pain, or bony pain SKIN: No rash, no erythema, no pruritus NEUROLOGIC: See HPI PSYCHIATRIC: No concerning psychosocial issues. 12 point review of systems is negative except for those stated above and HPI Patient History Medical History Anxiety (07/10/16) Galvez's esophagus without dysplasia (11/22/15) Cataracts, bilateral (~2015) Essential hypertension (07/10/16) Essential tremor (12/08/14) Fractures H/O adenomatous polyp of colon Hearing loss Retinal detachment (~2015) Tinnitus Tubular adenoma (11/22/15) Surgical History No pertinent past surgical history Family History Father History of heart disease Mother Cancer Diabetes mellitus Hypertension Stroke Grandfather History of heart disease Social History Smoking Status: Never smoker Smoking Status: Never smoker Exam Initial Vital Signs Initial Vital Signs: Vital Signs Temperature 98.4 F 12/12/21 12:00 Pulse Rate 52 L 12/12/21 12:00 Respiratory Rate 18 12/12/21 12:00 Blood Pressure 215/105 H 12/12/21 12:00 Pulse Oximetry 97 12/12/21 12:00 Oxygen Delivery Method 12/12/21 12:00 GENERAL: Alert pleasant well-appearing 66-year-old male HEENT: Head atraumatic,EOMI, pupils reactive, face symmetric, moist mucous membranes Neck is supple no vertebral tenderness no meningeal sign CARDIOVASCULAR: Regular rate and rhythm without murmurs, rubs or gallops. RESPIRATORY: Breath sounds equal bilaterally, no wheezes rales or rhonchi. ABDOMEN: Soft, nontender. Normoactive bowel sounds all 4 quadrants. No guarding or rebound. EXTREMITIES: Normal range of motion, no clubbing or edema. Neurovascularly intact NEUROLOGICAL: Alert and oriented x4.Normal gait and speech. Cranial nerves II through XII grossly intact. Good ncngnw-mv-xuxv, good geso-jd-nfsp, strength equal bilaterally, no dysarthria or aphasia, sensation in tact to soft touch bilaterally, no visual changes, no facial droop SKIN: Warm, dry, no laceration, no petechiae, no rashes or lesions. Scores NIH Stroke Scale Level of Conciousness: Alert, keenly responsive Ask month/age: Answers both questions correctly. Open/close eyes, close hand: Performs both tasks correctly Best gaze horizontal: Normal Visual valencia: No visual loss Facial palsy: Normal symetrical movement Left arm drift: No drift for full 10 sec Right arm drift: No drift for full 10 sec Left leg drift: No drift for full 5 sec Right leg drift: No drift for full 5 sec Limb ataxia: Absent Sensory on face/arms/legs: Normal, no sensory loss Best language: No aphasia, normal Dysarthria: Normal Extinction or inattention: No abnormality Total NIH Stroke scale score: 0 Course Orders Ordered: ED Orders 12/12/21 12:06 XR chest 1V Stat EKG-12 Lead Stat 12/12/21 12:12 Complete Blood Count AUTO DIFF Stat Comprehensive Metabolic Panel Stat Lipase Stat Magnesium Stat Partial Thromboplastin Time Stat Prothrombin Time INR Stat Troponin & CK Cardiac Panel Stat 12/12/21 13:41 CT head/brain wo con Stat 12/12/21 13:55 CT angio head and neck Stat 12/12/21 15:45 EKG-12 Lead Routine Discontinued Medications Acetaminophen (Acetaminophen 325 Mg Tablet) 975 mg PO NOW ONE Stop: 12/12/21 14:05 Last Admin: 12/12/21 14:04 Dose: 975 mg Documented By: VAL Ketorolac Tromethamine (Ketorolac 30 Mg/Ml Vial) 15 mg IV NOW ONE Stop: 12/12/21 15:10 Last Admin: 12/12/21 15:35 Dose: 15 mg Documented By: CTS Vital Signs Vital signs: Vital Signs - 8 hr 12/12/21 12:00 12/12/21 13:47 12/12/21 14:51 Temperature 98.4 F Pulse Rate 52 L 50 L 55 L Respiratory Rate 18 17 16 Blood Pressure 215/105 H 198/101 H 175/100 H Pulse Oximetry 97 98 99 Oxygen Delivery Method Room Air Room Air Room Air 12/12/21 15:36 Temperature Pulse Rate 50 L Respiratory Rate 16 Blood Pressure 184/100 H Pulse Oximetry 98 Oxygen Delivery Method Room Air Medical Decision Making Differential Diagnosis Differential Diagnosis: SAH, hypertensive emergency, hypertensive urgency, CAD, tumor, meningitis Lab Data Result diagrams: 12/12/21 12:12 12/12/21 12:12 Labs: Lab Results 12/12/21 12/12/21 12/12/21 Range/Units 12:12 12:12 12:12 WBC 7.6 (4.5-11.0) X10^3/uL RBC 5.29 (4.5-5.9) X10^6/uL Hgb 16.1 (13.5-17.5) g/dL Hct 45.8 (41-53) % MCV 86.6 (80-100) fL MCH 30.4 (26-34) PG MCHC 35.1 (30-36) % RDW 12.8 (11.6-14.8) % Plt Count 152 (150-400) X10^3/uL Neut % (Auto) 59.8 (50-75) % Lymph % (Auto) 29.7 (25-40) % [place] % (Auto) 8.3 (3-14) % Eos % (Auto) 1.7 L (2-4) % Baso % (Auto) 0.5 (0-2) % Neut # (Auto) 4500 (7060-6129) /uL Lymph # (Auto) 2300 (5093-0188) /uL [place]per # (Auto) 600 (0-900) /uL Eos # (Auto) 100 (0-450) /uL Baso # (Auto) 0 (0-100) /uL PT 13.2 H (10.1-12.7) SECONDS INR 1.2 (0.9-1.3) APTT 44 H (26-36) SECONDS Sodium 139 (137-145) mmol/L Potassium 3.7 (3.4-5.1) mmol/L Chloride 104 (98-107) mmol/L Carbon Dioxide 29 (22-32) mmol/L BUN 18 (9-20) mg/dL Creatinine 0.94 (0.66-1.25) mg/dL Estimated GFR > 60 (>60) mL/min BUN/Creatinine Ratio 19.1 (6-22) Glucose 97 (80-110) mg/dL Calcium 9.1 (8.4-10.2) mg/dL Magnesium 2.3 (1.6-2.3) mg/dL Total Bilirubin 0.8 (0.2-1.3) mg/dL AST 21 (17-59) IU/L ALT 17 (<50) IU/L Alkaline Phosphatase 53 (38-126) U/L Total Creatine Kinase 97 (55-170) U/L CK-MB (CK-2) TNP CK-MB (CK-2) Rel Index TNP Troponin I < 0.012 (0.01-0.034) ng/mL Total Protein 7.4 (6.3-8.2) g/dL Albumin 4.3 (3.5-5.0) g/dL Globulin 3.1 (1.7-4.1) g/dL Albumin/Globulin Ratio 1.4 (1.0-2.8) Lipase 165 (23-300) U/L Urine Dip Bedside Urine Glucose Negative Bedside Urine Bilirubin - Negative Bedside Urine Ketone - Negative Urine Specific [place] 1.015 Bedside Urine Occult Blood - Negative Bedside Urine pH 6 Bedside Urine Protein - Negative Bedside Urine Urobilinogen - Negative Bedside Urine Nitrite - Negative Bedside Urine Leukocytes - Negative Esterase Point of care testing: Urine Dip Bedside Urine Glucose Negative Bedside Urine Bilirubin - Negative Bedside Urine Ketone - Negative Urine Specific [place] 1.015 Bedside Urine Occult Blood - Negative Bedside Urine pH 6 Bedside Urine Protein - Negative Bedside Urine Urobilinogen - Negative Bedside Urine Nitrite - Negative Bedside Urine Leukocytes - Negative Esterase Imaging Data CTA - brain/neck: Radiologist's Impression: OB: 1955 Acct:[id number] Age/Sex: 66 / M Date of Service: 12/12/21 Loc: ED Accession Number: [id number] ?? Procedure: CT angio head and neck Ordering Provider: Ruthy Pressley D.O. PROCEDURE:? CT ANGIO HEAD AND NECK ? INDICATIONS:? headache with HTN ? TECHNIQUE:? After the administration of intravenous contrast, 1 mm thick sections acquired from the aortic arch through the [place] of [place].? Post-contrast 4.5 mm thick sections then re-acquired from the foramen magnum to the vertex.? 3-dimensional lkspfzi-yqdfzkakd-vmanvdaxky (MIP) and/or volume rendering reformats were acquired of the central intracranial vasculature and neck separately. For radiation dose reduction, the following was used:? automated exposure control, adjustment of mA and/or kV according to patient size.? ? COMPARISON:? [facility], CT, CT HEAD/BRAIN WO CON, 12/12/2021, 14:00. ? FINDINGS:? Image quality:? Excellent.? ? BRAIN:? CSF spaces:? Ventricles are normal in size and shape.? Basal cisterns are patent.? No extra-axial fluid collections.? ? Brain:? No midline shift.? No intracranial bleeds or masses.? Aggarwal-white matter interface appears intact.? Minimal scattered areas of periventricular and subcortical white matter hypodensity are present. ? Skull and face:? Calvarium and facial bones appear intact, without suspicious lesions.? Orbits appear normal.? ? Sinuses:? Sinuses and mastoids are clear.? ? HEAD CT ANGIOGRAPHY:? Anterior circulation:? Intracranial internal carotid arteries are normal in size and flow.? The flow within the paired anterior cerebral arteries is normal and symmetric.? The flow within the middle cerebral arteries is normal and symmetric.? The anterior communicating artery is seen.? No aneurysms are seen.? ? Posterior circulation:? Visualized portions of the vertebral arteries demonstrate normal caliber, and join to form a normal appearing basilar artery.? Flow within the posterior cerebral arteries is normal and symmetric.? No aneurysms are seen.? ? NECK CT ANGIOGRAPHY:? Carotid system:? The great vessels demonstrate a conventional anatomy as they arise from the aortic arch.? The origins of the common carotid arteries appear patent.? The common carotid arteries demonstrate normal caliber and courses.? The bifurcation regions are both widely patent.? The internal carotid arteries demonstrate normal calibers and courses.? ? Posterior circulation:? The origins of the vertebral arteries both appear widely patent.? The more superior extracranial portions of both vertebral arteries also demonstrate normal courses and calibers.? They join to form a normal appearing basilar artery.? ? Soft tissues:? Visualized neck soft tissues demonstrate no suspicious abnormalities.? ? Bones:? No suspicious bony lesions.? Visualized cervical spine appears normally aligned.? IMPRESSION:? ? 1. No acute intracranial process. ? 2. Minimal to mild atrophy and chronic microvascular ischemic changes. ? 3. No areas of hemodynamically significant stenosis, vascular occlusion or aneurysmal dilation within the anterior posterior circulation. ? 4. No areas of hemodynamically significant stenosis, vascular occlusion or aneurysmal dilation within the neck vasculature. ? ? Any quantitative measurements of stenosis were performed using NASCET criteria.? ? ? Dictated by: Na Rios M.D. on 12/12/2021 at 14:48 ? ? CT scan - head: Radiologist's Impression: Signed Patient: Manoj Aguilar MR#: [id number] : 1955 Acct:[id number] Age/Sex: 66 / M Date of Service: 12/12/21 Loc: ED Accession Number: [id number] ?? Procedure: CT head/brain wo con Ordering Provider: Ruthy Pressley D.O. PROCEDURE:? CT HEAD/BRAIN WO CON ? INDICATIONS:? sudden headache ? TECHNIQUE:? Noncontrast 4.5 mm thick angled axial sections acquired from the foramen magnum to the vertex, with coronal and sagittal reformats.? For radiation dose reduction, the following was used:? automated exposure control, adjustment of mA and/or kV according to patient size.? ? COMPARISON:? [facility], CT, CT ANGIO HEAD AND NECK, 12/12/2021, 14:00. ? FINDINGS:? Image quality:? Excellent.? ? CSF spaces:? Basal cisterns are patent.? No extra-axial fluid collections.? The ventricles are symmetric in size and shape.? ? Brain:? No intracranial bleeds or masses.? There is cerebral volume loss for age, with resultant ventricular and sulcal prominence.? There are periventricular and deep white matter chronic small vessel ischemic changes.? There is intracranial internal carotid artery atherosclerosis.? ? Skull and face:? Calvarium and visualized facial bones appear intact, without suspicious lesions.? ? Sinuses:? Visualized sinuses and mastoids are clear.? ? IMPRESSION:? ? 1. No acute intracranial process. ? 2. Minimal to mild atrophy and chronic microvascular ischemic changes. ? ? ? Dictated by: Na Rios M.D. on 12/12/2021 at 14:51 ? ? Chest x-ray: Radiologist's Impression: [address] [address] XRay Report Signed Patient: Manoj Aguilar MR#: [id number] : 1955 Acct:[id number] Age/Sex: 66 / M Date of Service: 12/12/21 Loc: ED Accession Number: [id number] ?? Procedure: XR chest 1V Ordering Provider: Ruthy Pressley D.O. PROCEDURE:? XR CHEST 1V ? INDICATIONS:? chest pain ? TECHNIQUE:? One view of the chest was acquired.? ? COMPARISON:? [facility], CR, XR CHEST 2V, 05/03/2018, 12:59. ? FINDINGS:? ? Surgical changes and devices:? None.? ? Lungs and pleura:? Mild appearance of increased pulmonary vascularity.? No pleural effusions or pneumothorax.? ? Mediastinum:? Mediastinal contours appear normal.? Heart size is normal.? ? Bones and chest wall:? No suspicious bony lesions.? Overlying soft tissues appear unremarkable.? ? IMPRESSION:? Mild appearance of increased pulmonary vascularity possibly representing edema. ? ? Dictated by: Na Rios M.D. on 12/12/2021 at 12:45 ? ? Approved by: Na Rios M.D. on 12/12/2021 at 12:45 ? ECG Data Interpretation: Sinus rhythm rate 47 WV interval 150 QRS 92 QTC [address] inversion [address] depression noted in lead 3 no priors to compare no other ischemic changes MDM Narrative Medical decision making narrative: Patient is noted to be quite bradycardic he is on atenolol and lisinopril. He says he took his blood pressure medication. Concern for sudden onset of headache head hypertension concern for subarachnoid. He has no neurologic deficits overall appears well. Wanting something for his mild headache like Tylenol. The patient overall appears well. CT angio is negative blood work is overall reassuring. Blood pressure has come down without any intervention. He actually is feeling better the headache is actually right at this C1 C2 junction. He actually had relief with some mild traction at that joint. Patient's CT is right at the 6 hour natanael just before. Could potentially still be a subarachnoid however patient overall appears well and not having a severe headache. I discussed with him possible LP however home feel like it is necessary at this time. Patient updated on my concerns and agrees to return if he has any new or worsening headache vomiting or neurologic symptoms. Discharge Plan Departure Patient Disposition: Home Clinical Impression: Essential hypertension, Migraine Instructions: DI for High Blood Pressure Activity Restrictions/Additional Instructions: *You have been diagnosed with high blood pressure and headache *What to do: Monitor blood pressure once a day. Please discuss with your PCP may need blood pressure medication adjustment. *Continue to take medications as directed Tylenol 1000 mg every 6 hours only if needed Ibuprofen 600 mg every 6 hours only if needed *Follow up with your primary care provider in 2-3 days or call [phone] *Return to ER if you should have worsening headache persistent vomiting numbness tingling weakness visual changes chest pain or any new, worsening or concerning symptoms Prescriptions: No Action sildenafil (pulm.hypertension) 20 mg tablet 20 mg PO DAILY PRN (Reason: sexual activity) Qty: 30 1RF primidone 50 mg tablet 50 mg PO BEDTIME Qty: 90 3RF clotrimazole-betamethasone 1-0.05 % cream 1 applic TOP BID 28 Days Qty: 15 0RF atenolol 25 mg tablet 25 mg PO DAILY Qty: 90 3RF lisinopril 20 mg tablet 20 mg PO DAILY Qty: 90 3RF Referrals: Jarred Gimenez MD [Primary Care Provider] - Visit Report Forms: Patient Portal/API
--- NOTE | 2021-12-12 13:41 | DI.CT.S_ITS ---
PROCEDURE: CT HEAD/BRAIN WO CON INDICATIONS: sudden headache TECHNIQUE: Noncontrast 4.5 mm thick angled axial sections acquired from the foramen magnum to the vertex, with coronal and sagittal reformats. For radiation dose reduction, the following was used: automated exposure control, adjustment of mA and/or kV according to patient size. COMPARISON: [facility], CT, CT ANGIO HEAD AND NECK, 12/12/2021, 14:00. FINDINGS: Image quality: Excellent. CSF spaces: Basal cisterns are patent. No extra-axial fluid collections. The ventricles are symmetric in size and shape. Brain: No intracranial bleeds or masses. There is cerebral volume loss for age, with resultant ventricular and sulcal prominence. There are periventricular and deep white matter chronic small vessel ischemic changes. There is intracranial internal carotid artery atherosclerosis. Skull and face: Calvarium and visualized facial bones appear intact, without suspicious lesions. Sinuses: Visualized sinuses and mastoids are clear. IMPRESSION: 1. No acute intracranial process. 2. Minimal to mild atrophy and chronic microvascular ischemic changes. Dictated by: Na Rios M.D. on 12/12/2021 at 14:51 Approved by: Na Rios M.D. on 12/12/2021 at 14:52
[2021-12-12 13:47] VITALS: BP 198/101; PULSE 50; RESP 17; O2SAT 98
--- NOTE | 2021-12-12 13:55 | DI.CT.S_ITS ---
PROCEDURE: CT ANGIO HEAD AND NECK INDICATIONS: headache with HTN TECHNIQUE: After the administration of intravenous contrast, 1 mm thick sections acquired from the aortic arch through the [place] of [place]. Post-contrast 4.5 mm thick sections then re-acquired from the foramen magnum to the vertex. 3-dimensional trgnbka-cczllmtdl-npsnnxhokt (MIP) and/or volume rendering reformats were acquired of the central intracranial vasculature and neck separately. For radiation dose reduction, the following was used: automated exposure control, adjustment of mA and/or kV according to patient size. COMPARISON: [facility], CT, CT HEAD/BRAIN WO CON, 12/12/2021, 14:00. FINDINGS: Image quality: Excellent. BRAIN: CSF spaces: Ventricles are normal in size and shape. Basal cisterns are patent. No extra-axial fluid collections. Brain: No midline shift. No intracranial bleeds or masses. Aggarwal-white matter interface appears intact. Minimal scattered areas of periventricular and subcortical white matter hypodensity are present. Skull and face: Calvarium and facial bones appear intact, without suspicious lesions. Orbits appear normal. Sinuses: Sinuses and mastoids are clear. HEAD CT ANGIOGRAPHY: Anterior circulation: Intracranial internal carotid arteries are normal in size and flow. The flow within the paired anterior cerebral arteries is normal and symmetric. The flow within the middle cerebral arteries is normal and symmetric. The anterior communicating artery is seen. No aneurysms are seen. Posterior circulation: Visualized portions of the vertebral arteries demonstrate normal caliber, and join to form a normal appearing basilar artery. Flow within the posterior cerebral arteries is normal and symmetric. No aneurysms are seen. NECK CT ANGIOGRAPHY: Carotid system: The great vessels demonstrate a conventional anatomy as they arise from the aortic arch. The origins of the common carotid arteries appear patent. The common carotid arteries demonstrate normal caliber and courses. The bifurcation regions are both widely patent. The internal carotid arteries demonstrate normal calibers and courses. Posterior circulation: The origins of the vertebral arteries both appear widely patent. The more superior extracranial portions of both vertebral arteries also demonstrate normal courses and calibers. They join to form a normal appearing basilar artery. Soft tissues: Visualized neck soft tissues demonstrate no suspicious abnormalities. Bones: No suspicious bony lesions. Visualized cervical spine appears normally aligned. IMPRESSION: 1. No acute intracranial process. 2. Minimal to mild atrophy and chronic microvascular ischemic changes. 3. No areas of hemodynamically significant stenosis, vascular occlusion or aneurysmal dilation within the anterior posterior circulation. 4. No areas of hemodynamically significant stenosis, vascular occlusion or aneurysmal dilation within the neck vasculature. Any quantitative measurements of stenosis were performed using NASCET criteria. Dictated by: Na Rios M.D. on 12/12/2021 at 14:48 Approved by: Na Rios M.D. on 12/12/2021 at 14:51
[2021-12-12] MEDS: ACETAMINOPHEN 325 MG TABLET 975 MG PO (14:04)
[2021-12-12 14:51] VITALS: BP 175/100; PULSE 55; RESP 16; O2SAT 99
[2021-12-12] MEDS: KETOROLAC 30 MG/ML VIAL 15 MG IV (15:35)
[2021-12-12 15:36] VITALS: BP 184/100; PULSE 50; RESP 16; O2SAT 98
== END 2021-12-12 15:59 | disposition home or self-care (01) ==
PROVIDERS: Emergency Provider Emergency Medicine; PCP Internal Medicine
DX: I10 Essential (primary) hypertension (principal); G43.909 Migraine, unspecified, not intractable, without status migrainosus; R07.9 Chest pain, unspecified
CPT/HCPCS: 36415; 70450; 70496; 70498; 71045; 80053; 81003; 82550; 83690; 83735; 84484; 85025; 85610; 85730; 93005; 96374; 99284; J1885

== ENCOUNTER → 2022-01-15 09:36 | Outpatient (CLI) | payer OTHER, SELFPAY ==
[2022-01-15 11:28] LABS: BUN Creatinine Ratio 21.3 (6-22); Blood Urea Nitrogen 20 mg/dL (9-20); Calcium 9.4 mg/dL (8.4-10.2); Carbon Dioxide 28 mmol/L (22-32); Chloride 101 mmol/L (98-107); Estimated Glomerular Filt Rate > 60 mL/min (>60); Glucose 101 mg/dL (80-110); HEMOLYSIS < 15 (0-50); Potassium 3.8 mmol/L (3.4-5.1); Sodium 139 mmol/L (137-145)
== END ==
PROVIDERS: PCP Internal Medicine; Referring Provider Internal Medicine; Visit Provider Internal Medicine
DX: I10 Essential (primary) hypertension (principal)
CPT/HCPCS: 36415; 80048

== ENCOUNTER 2022-02-04 13:46 | Observation (INO) | payer OTHER, SELFPAY ==
[2022-02-04] VITALS (33 sets, daily range): BP systolic 107–219; BP diastolic 56–137; PULSE 40–72; RESP 12–34; TEMP 36.3–36.9; O2SAT 93–98; BMI 29.8
--- NOTE | 2022-02-04 13:56 | ED_ITS ---
HPI - Chest Pain General Chief Complaint: Chest Pain Stated Complaint: thightness on chest & high blood pressure Time Seen by Provider: 02/04/22 13:50 History of Present Illness HPI narrative: 66-year-old male nonsmoker with history of hypertension presents with a chief complaint of left-sided chest pain and pressure that woke him from sleep this morning along with elevated blood pressure. He states that he has been having trouble with his blood pressures lately and though he has been taking his medications as prescribed his primary care provider (Pernell) has been altering his regimen lately. He denies any recent exertional dyspnea or exercise intolerance. He denies any headache, blurred vision or difficulty with speech. He states that he was awoken from sleep with a relatively sudden left-sided chest pressure without obvious provocation, palliation or radiation. He states at its maximum it was a 7/10 pain and has gradually improved over the course of the day and is now about a 1/10. He states it has been present on some level the whole day. He denies other symptoms such as dizziness, unexplained diaphoresis, nausea or vomiting. He denies any exertional component. Related Data Home Medications Medication Instructions Recorded Confirmed atenolol 25 mg tablet 25 mg PO BID 02/04/22 02/04/22 lisinopril 40 mg tablet 40 mg PO DAILY 02/04/22 02/04/22 Previous Rx's Medication Instructions Recorded primidone 50 mg tablet 50 mg PO BEDTIME #90 tabs 11/16/21 hydrochlorothiazide 25 mg tablet 25 mg PO DAILY #90 tabs 12/15/21 amlodipine 10 mg tablet 10 mg PO DAILY #90 tabs 01/15/22 Allergies Allergy/AdvReac Type Severity Reaction Status Date / Time azithromycin [AZITHROMYCIN] Allergy Mild rash Verified 01/15/22 09:17 Review of Systems Review of Systems Narrative: GENERAL: Denies chills, fatigue, malaise, fever, sweats. HEENT: Denies sinus pain, ear pain, sore throat, difficulty swallowing, dizziness. RESPIRATORY: Denies dyspnea, cough, wheezing, hemoptysis, sputum. CARDIOVASCULAR: See HPI GASTROINTESTINAL: Denies nausea, vomiting, abdominal pain, diarrhea, constipation, melena. : Denies dysuria, frequency, incontinence, hematuria, urinary retention. MUSCULOSKELETAL: denies weakness, joint pain, or bony pain SKIN: Denies rash, skin lesions, or other NEUROLOGIC: Denies weakness, headache, numbness, change in speech, confusion, seizures, incoordination. PSYCHIATRIC: No concerning psychosocial issues. 12 point review of systems is negative except for those stated above Patient History Medical History Anxiety (07/10/16) Galvez's esophagus without dysplasia (11/22/15) Cataracts, bilateral (~2015) Essential hypertension (07/10/16) Essential tremor (12/08/14) Fractures H/O adenomatous polyp of colon Hearing loss Retinal detachment (~2015) Tinnitus Tubular adenoma (11/22/15) Surgical History No pertinent past surgical history Family History Father History of heart disease Mother Cancer Diabetes mellitus Hypertension Stroke Grandfather History of heart disease Social History household members: spouse Smoking Status: Never smoker alcohol intake: current Smoking Status: Never smoker Exam Narrative Exam Narrative: GENERAL: [66] year old patient appears stated age. Well-developed patient, in mild distress. HEAD: Atraumatic. Normocephalic. EYES: Pupils equal round and reactive. Extraocular motions intact. No scleral icterus. No injection or drainage. ENT: Nose without bleeding, purulent drainage. Throat without erythema, tonsillar hypertrophy or exudate. Airway patent. NECK: Trachea midline. Non tender CARDIOVASCULAR: Regular rate and rhythm without murmurs, gallops, or rubs. RESPIRATORY: Clear to auscultation. Breath sounds equal bilaterally. No wheezes, rales, or rhonchi. GASTROINTESTINAL: Abdomen soft, non-tender, nondistended. EXTREMITIES: No edema or joint tenderness. BACK: Nontender without deformity or crepitance. No flank tenderness. NEURO: AOx3. SKIN: No rash or erythema of visible areas Initial Vital Signs Initial Vital Signs: Vital Signs Pulse Rate 58 L 02/04/22 13:53 Respiratory Rate 24 02/04/22 13:53 Blood Pressure 219/105 H 02/04/22 13:53 Pulse Oximetry 97 02/04/22 13:53 Course Orders Ordered: Acetaminophen (Acetaminophen 325 Mg Tablet) 650 mg PO Q6H PRN PRN Reason: Fever/Mild Pain (1-3) Amlodipine Besylate (Amlodipine 5 Mg Tablet) 10 mg PO BEDTIME [facility] Last Admin: 02/05/22 21:28 Dose: 10 mg Documented By: COBY Aspirin (Aspirin Ec 81 Mg Tablet) 81 mg PO DAILY [facility] Last Admin: 02/05/22 09:21 Dose: 81 mg Documented By: NAE Atenolol (Atenolol 25 Mg Tablet) 25 mg PO BID [facility] Last Admin: 02/05/22 21:28 Dose: 25 mg Documented By: Admin: 02/05/22 09:21 Dose: 25 mg Documented By: Admin: 02/04/22 22:46 Dose: 25 mg Documented By: COBY Betamethasone/Clotrimazole (Clotrimazole/Betamethasone Crm 15 Gm) 1 applic TOP BID [facility] Last Admin: 02/05/22 21:27 Dose: Not Given Documented By: Admin: 02/05/22 09:21 Dose: Not Given Documented By: NAE Enoxaparin Sodium (Enoxaparin 40 Mg/0.4 Ml Syringe) 40 mg SUBCUT DAILY [facility] Last Admin: 02/05/22 09:21 Dose: 40 mg Documented By: NAE Hydralazine HCl (Hydralazine 20 Mg/Ml Vial) 5 mg IV Q6HR PRN PRN Reason: Hypertension Hydrochlorothiazide (Hydrochlorothiazide 25 Mg Tablet) 25 mg PO DAILY [facility] Last Admin: 02/05/22 09:21 Dose: 25 mg Documented By: NAE Lisinopril (Lisinopril 20 Mg Tablet) 40 mg PO DAILY [facility] Last Admin: 02/05/22 13:27 Dose: 40 mg Documented By: NAE Naloxone HCl (Naloxone 0.4 Mg/Ml Vial) 0.2 mg IV Q2MIN PRN PRN Reason: Opiate Reversal Nitroglycerin (Nitroglycerin 0.4 Mg Sl Tab) 0.4 mg SL [id number] PRN PRN Reason: Chest Pain Primidone (Primidone 50 Mg Tablet) 50 mg PO BEDTIME [facility] Last Admin: 02/05/22 21:28 Dose: 50 mg Documented By: Admin: 02/04/22 22:46 Dose: 50 mg Documented By: COBY Sodium Chloride (Sodium Chloride 0.9% Flush) 10 ml IV BID [facility] Last Admin: 02/05/22 21:28 Dose: 10 ml Documented By: Admin: 02/05/22 09:21 Dose: 10 ml Documented By: NAE Discontinued Medications Amlodipine Besylate (Amlodipine 5 Mg Tablet) 10 mg PO DAILY [facility] Last Admin: 02/05/22 11:31 Dose: Not Given Documented By: NAE Aspirin (Aspirin 81 Mg Chew Tab) 324 mg PO NOW ONE Stop: 02/04/22 13:57 Last Admin: 02/04/22 14:05 Dose: 324 mg Documented By: WILLIE Sodium Chloride (Normal Saline 0.9%) 1,000 mls @ 150 mls/hr IV CONT [facility] Last Infusion: 02/04/22 18:34 Dose: 0 mls/hr Documented By: Infusion: 02/04/22 15:05 Dose: 150 mls/hr Documented By: Infusion: 02/04/22 14:30 Dose: 999 mls/hr Documented By: Admin: 02/04/22 14:11 Dose: 150 mls/hr Documented By: WILLIE Nitroglycerin (Nitroglycerin 0.4 Mg Sl Tab) 0.4 mg SL [id number] PRN PRN Reason: Chest Pain Last Admin: 02/04/22 14:09 Dose: 0.4 mg Documented By: WILLIE Reevaluation(s) Reevaluation #1: Patient given single sublingual nitro on arrival due to blood pressure 215/104, he had significant improvement down to the 150s and 160s with resolution pain, however in the aftermath his blood pressure dropped all the way to 100 he became symptomatic and complained of dizziness, lightheadedness. He was laid flat and given a 500 cc bolus and symptoms completely resolved within 5-10 minutes. Vital Signs Vital signs: Vital Signs - 8 hr 02/04/22 13:55 02/04/22 14:09 02/04/22 13:53 Temperature 98.4 F Pulse Rate 58 L 56 L Respiratory Rate 18 Blood Pressure 219/105 H 159/93 H 219/105 H Pulse Oximetry 97 Oxygen Delivery Method Room Air 02/04/22 13:53 02/04/22 14:00 02/04/22 14:00 Temperature Pulse Rate 58 L 55 L Respiratory Rate 24 18 Blood Pressure 159/79 H Pulse Oximetry 97 95 Oxygen Delivery Method Room Air 02/04/22 14:09 02/04/22 14:09 02/04/22 14:15 Temperature Pulse Rate 56 L Respiratory Rate 13 Blood Pressure 159/93 H 151/71 H Pulse Oximetry 97 Oxygen Delivery Method 02/04/22 14:15 02/04/22 14:19 02/04/22 14:19 Temperature Pulse Rate 65 52 L Respiratory Rate 27 H 20 Blood Pressure 132/64 Pulse Oximetry 95 97 Oxygen Delivery Method 02/04/22 14:28 02/04/22 14:28 02/04/22 14:30 Temperature Pulse Rate 41 L Respiratory Rate 17 Blood Pressure 109/56 L 107/57 L Pulse Oximetry 96 Oxygen Delivery Method 02/04/22 14:30 02/04/22 14:33 02/04/22 14:33 Temperature Pulse Rate 40 L 47 L Respiratory Rate 13 Blood Pressure 116/64 Pulse Oximetry 96 95 Oxygen Delivery Method Room Air 02/04/22 14:45 02/04/22 14:45 02/04/22 15:00 Temperature Pulse Rate 50 L Respiratory Rate Blood Pressure 127/72 132/71 Pulse Oximetry 96 Oxygen Delivery Method 02/04/22 15:00 02/04/22 15:15 02/04/22 15:15 Temperature Pulse Rate 46 L 48 L Respiratory Rate 13 Blood Pressure 137/70 Pulse Oximetry 95 97 Oxygen Delivery Method Room Air Room Air 02/04/22 15:30 02/04/22 15:30 02/04/22 15:45 Temperature Pulse Rate 48 L 49 L Respiratory Rate 13 12 Blood Pressure 137/73 Pulse Oximetry 94 95 Oxygen Delivery Method Room Air Room Air 02/04/22 15:45 02/04/22 16:00 02/04/22 16:00 Temperature Pulse Rate 55 L Respiratory Rate 19 Blood Pressure 145/80 H 159/82 H Pulse Oximetry 95 Oxygen Delivery Method 02/04/22 16:15 02/04/22 16:15 02/04/22 16:30 Temperature Pulse Rate 53 L Respiratory Rate 21 Blood Pressure 156/83 H 154/89 H Pulse Oximetry 94 Oxygen Delivery Method 02/04/22 16:30 02/04/22 16:45 02/04/22 16:45 Temperature Pulse Rate 53 L 57 L Respiratory Rate 17 18 Blood Pressure 161/95 H Pulse Oximetry 93 93 Oxygen Delivery Method 02/04/22 17:00 02/04/22 17:01 02/04/22 17:01 Temperature Pulse Rate 60 72 Respiratory Rate 21 20 Blood Pressure 169/137 H Pulse Oximetry 93 94 Oxygen Delivery Method 02/04/22 17:08 02/04/22 17:08 02/04/22 17:30 Temperature Pulse Rate 55 L 63 Respiratory Rate 17 17 Blood Pressure 163/86 H Pulse Oximetry 94 94 Oxygen Delivery Method Room Air MDM - Chest Pain Lab Data Result diagrams: 02/04/22 13:56 02/05/22 06:20 Labs: Lab Results 02/04/22 02/04/22 02/04/22 Range/Units 13:56 13:56 16:10 WBC 8.1 (4.5-11.0) X10^3/uL RBC 5.52 (4.5-5.9) X10^6/uL Hgb 16.5 (13.5-17.5) g/dL Hct 48.0 (41-53) % MCV 87.0 (80-100) fL MCH 30.0 (26-34) PG MCHC 34.5 (30-36) % RDW 12.9 (11.6-14.8) % Plt Count 176 (150-400) X10^3/uL Neut % (Auto) 55.9 (50-75) % Lymph % (Auto) 34.2 (25-40) % [place] % (Auto) 7.4 (3-14) % Eos % (Auto) 1.8 L (2-4) % Baso % (Auto) 0.7 (0-2) % Neut # (Auto) 4500 (7259-1770) /uL Lymph # (Auto) 2800 (2876-3944) /uL [place] # (Auto) 600 (0-900) /uL Eos # (Auto) 100 (0-450) /uL Baso # (Auto) 100 (0-100) /uL Sodium 138 (137-145) mmol/L Potassium 3.3 L (3.4-5.1) mmol/L Chloride 102 (98-107) mmol/L Carbon Dioxide 27 (22-32) mmol/L BUN 20 (9-20) mg/dL Creatinine 0.86 (0.66-1.25) mg/dL Estimated GFR > 60 (>60) mL/min BUN/Creatinine Ratio 23.3 H (6-22) Glucose 116 H (80-110) mg/dL Calcium 9.2 (8.4-10.2) mg/dL Total Bilirubin 0.5 (0.2-1.3) mg/dL AST 27 (17-59) IU/L ALT 31 (<50) IU/L Alkaline Phosphatase 58 (38-126) U/L Total Creatine Kinase 155 117 (55-170) U/L CK-MB (CK-2) 1.69 1.25 (<2.37) ng/mL CK-MB (CK-2) Rel Index 1.1 L 1.1 L (1.5-5.0) % Troponin I < 0.012 < 0.012 (0.01-0.034) ng/mL NT-Pro-B Natriuret Pep 96 (<125) pg/mL Total Protein 7.4 (6.3-8.2) g/dL Albumin 4.3 (3.5-5.0) g/dL Globulin 3.1 (1.7-4.1) g/dL Albumin/Globulin Ratio 1.4 (1.0-2.8) Lipase 145 (23-300) U/L SARS-CoV-2 (PCR) (Negative) 02/04/22 Range/Units 18:17 WBC (4.5-11.0) X10^3/uL RBC (4.5-5.9) X10^6/uL Hgb (13.5-17.5) g/dL Hct (41-53) % MCV (80-100) fL MCH (26-34) PG MCHC (30-36) % RDW (11.6-14.8) % Plt Count (150-400) X10^3/uL Neut % (Auto) (50-75) % Lymph % (Auto) (25-40) % Berrien % (Auto) (3-14) % Eos % (Auto) (2-4) % Baso % (Auto) (0-2) % Neut # (Auto) (5949-5285) /uL Lymph # (Auto) (6552-4964) /uL Berrien # (Auto) (0-900) /uL Eos # (Auto) (0-450) /uL Baso # (Auto) (0-100) /uL Sodium (137-145) mmol/L Potassium (3.4-5.1) mmol/L Chloride (98-107) mmol/L Carbon Dioxide (22-32) mmol/L BUN (9-20) mg/dL Creatinine (0.66-1.25) mg/dL Estimated GFR (>60) mL/min BUN/Creatinine Ratio (6-22) Glucose (80-110) mg/dL Calcium (8.4-10.2) mg/dL Total Bilirubin (0.2-1.3) mg/dL AST (17-59) IU/L ALT (<50) IU/L Alkaline Phosphatase (38-126) U/L Total Creatine Kinase (55-170) U/L CK-MB (CK-2) (<2.37) ng/mL CK-MB (CK-2) Rel Index (1.5-5.0) % Troponin I (0.01-0.034) ng/mL NT-Pro-B Natriuret Pep (<125) pg/mL Total Protein (6.3-8.2) g/dL Albumin (3.5-5.0) g/dL Globulin (1.7-4.1) g/dL Albumin/Globulin Ratio (1.0-2.8) Lipase (23-300) U/L SARS-CoV-2 (PCR) Negative (Negative) Discharge Plan Departure Patient Disposition: Admitted as Observation Clinical Impression: Essential hypertension, Chest pain Admit Date/Time: 02/04/22 18:19 Admit Provider: Nohemy Marin
--- NOTE | 2022-02-04 13:57 | DI.RAD.S_ITS ---
PROCEDURE: XR CHEST 1V INDICATIONS: chest pain TECHNIQUE: One view of the chest was acquired. COMPARISON: [facility], , XR CHEST 1V, 12/12/2021, 12:06. FINDINGS: Surgical changes and devices: None. Lungs and pleura: Lungs are clear. No pleural effusions or pneumothorax. Mediastinum: Mediastinal contours appear normal. Heart size is normal. Bones and chest wall: No suspicious bony lesions. Overlying soft tissues appear unremarkable. IMPRESSION: No acute cardiopulmonary findings Approved by: Paulo Lynch M.D. on 02/04/2022 at 14:33
[2022-02-04] MEDS: ASPIRIN 81 MG CHEW TAB 324 MG PO (14:05)
[2022-02-04 14:07] LABS: Add Manual Diff / Slide Review NO; Basophils Absolute Auto 100 /uL (0-100); Basophils Percent Auto 0.7 % (0-2); Eosinophils Absolute Auto 100 /uL (0-450); Eosinophils Percent Auto 1.8 % (2-4); Hemoglobin 16.5 g/dL (13.5-17.5); Lymphocytes Absolute Auto 2800 /uL (1100-4500); Lymphocytes Percent Auto 34.2 % (25-40); Mean Corpuscular HGB Conc 34.5 % (30-36); Monocytes Absolute Auto 600 /uL (0-900); Monocytes Percent Auto 7.4 % (3-14); Neutrophils Absolute Auto 4500 /uL (1500-7000); Neutrophils Percent Auto 55.9 % (50-75); Platelet Count 176 X10^3/uL (150-400); Red Blood Cell Count 5.52 X10^6/uL (4.5-5.9); Red Cell Distribution Width 12.9 % (11.6-14.8); White Blood Cell Count 8.1 X10^3/uL (4.5-11.0)
[2022-02-04] MEDS: NITROGLYCERIN 0.4 MG SL TAB SL (14:09)
[2022-02-04] MEDS: SODIUM CHLORIDE 0.9% 1,000 ML 150 ML IV (14:11)
[2022-02-04 14:21] LABS: Alanine Aminotransferase 31 IU/L (<50); Albumin 4.3 g/dL (3.5-5.0); Albumin Globulin Ratio 1.4 (1.0-2.8); Alkaline Phosphatase 58 U/L (38-126); Aspartate Aminotransferase 27 IU/L (17-59); BUN Creatinine Ratio 23.3 (6-22); Bilirubin Total 0.5 mg/dL (0.2-1.3); Blood Urea Nitrogen 20 mg/dL (9-20); Calcium 9.2 mg/dL (8.4-10.2); Carbon Dioxide 27 mmol/L (22-32); Chloride 102 mmol/L (98-107); Creatine Kinase 155 U/L (55-170); Estimated Glomerular Filt Rate > 60 mL/min (>60); Globulin 3.1 g/dL (1.7-4.1); Glucose 116 mg/dL (80-110); HEMOLYSIS 20 (0-50); Lipase 145 U/L (23-300); Potassium 3.3 mmol/L (3.4-5.1); Sodium 138 mmol/L (137-145); Total Protein 7.4 g/dL (6.3-8.2)
[2022-02-04 14:33] LABS: NT-proBNP (BNP-Adult 18+) 96 pg/mL (<125); Troponin I < 0.012 ng/mL (0.01-0.034)
[2022-02-04 14:36] LABS: CKMB % Relative Index 1.1 % (1.5-5.0); Creatine Kinase MB 1.69 ng/mL (<2.37)
--- NOTE | 2022-02-04 14:52 | PC.NURSE ---
Pt received first dose of nitro at 14:09. Pt's BP was 159/93, HR 56. At 14:19 pt's BP 132/64, HR 52. Pt states he is feeling whoozy, pt placed in supine position, Dr. Wayne notified. At 14:28 pt's BP was 109/56. HR 41. Dr. Wayne notified again. Verbal order received to bolus NS 500ml. 14:30 pt in supine position, 500ml NS running at 999ml/hr. 14:45 pt's BP 127/72, HR 50, pt denies dizziness or any chest pain.
[2022-02-04 16:32] LABS: Creatine Kinase 117 U/L (55-170)
[2022-02-04 16:45] LABS: Troponin I < 0.012 ng/mL (0.01-0.034)
[2022-02-04 16:47] LABS: CKMB % Relative Index 1.1 % (1.5-5.0); Creatine Kinase MB 1.25 ng/mL (<2.37)
[2022-02-04 19:03] LABS: COVID19 -Nasal RAPID Negative (Negative)
[2022-02-04] MEDS: PRIMIDONE 50 MG TABLET PO (22:46)
[2022-02-04] MEDS: atenoloL 25 MG TABLET PO (22:46)
[2022-02-05 02:00] VITALS: BP 117/78; PULSE 57; RESP 14; TEMP 36.7; O2SAT 98
[2022-02-05 06:00] VITALS: BP 118/69; PULSE 62; RESP 14; TEMP 36.4; O2SAT 98
--- NOTE | 2022-02-05 06:51 | DI.ECHO.S_ITS ---
[facility] +---------+ [facility] +---------+ : : [address] : : : : [id number] : : : : Phone: [phone] Echocardiogram Report + + :Name: BLANCA LOPEZ Study Date: 02/05/2022 Height: 72 in : :[facility] ReadingLocation: Weight: 220 lb : : Gender: Male BSA: 2.2 m2 : :: 1955 Age: 66 yrs BP: 138/88 mmHg: :Reason For Study: Chest pain : :Ordering Physician: RASHIDA, : :DINAH Woodruff Performed By: Roland Fernandes : :Referring: DINAH FIELD : + + Interpretation Summary Normal both left and right ventricle size and function. The ejection fraction is estimated to be 55-60%. No valvular abnormality. Procedure: A two-dimensional transthoracic echocardiogram with color flow and Doppler was performed. The study quality was technically adequate. There is no prior echocardiogram noted for this patient. The patient was in normal sinus rhythm during the exam. Left Ventricle: The left ventricle is normal in size and wall thickness. Left ventricular systolic function is normal. The ejection fraction is estimated to be 55-60%. There are no focal wall motion abnormalities. Diastolic parameters suggest probable normal left ventricular diastolic function and normal filling pressures. Right Ventricle: The right ventricle is normal in size and function. Atria: Both atria are normal in size. The interatrial septum grossly appears intact with no obvious evidence for an atrial septal defect. Mitral Valve: The mitral valve is normal in structure and function. There is no mitral regurgitation noted. Aortic Valve: The aortic valve is normal in structure and function. No aortic regurgitation is present. Tricuspid Valve: The tricuspid valve is normal in structure and function. There is a trace or physiologic amount of tricuspid regurgitation. Pulmonary artery pressures cannot be estimated because of the lack of a measurable TR jet velocity. Pulmonic Valve: The pulmonic valve is normal in structure and function. There is no pulmonic valvular regurgitation. Great Vessels: The aortic root is normal size. The dimensions of the ascending aorta are normal. The IVC is of normal diameter and collapses greater than 50% with a sniff. This suggests a low right atrial pressure of 3 mm Hg. Pericardium/ Pleura There is no pericardial effusion. There is no pleural effusion. MMode/2D Measurements & Calculations LVIDd: 5.0 cm LVOT diam: 2.1 cm LVIDs: 3.2 cm Ao root diam: 3.2 cm FS: 36.0 % asc Aorta Diam: 3.2 cm IVSd: 0.90 cm LVPWd: 0.90 cm LV villegas. diameter/BSA (cm/m^2): 2.3 LV sys. diameter/BSA (cm/m^2): 1.4 LA dimension: 4.1 cm RA long axis: 6.1 cm LA A2 area: 24.3 cm2 RA area: 16.4 cm2 LA A4 area: 19.7 cm2 RA vol: 37.5 ml LA length (vol): 6.1 cm RA : 16.9 ml/m2 LA vol: 67.1 ml LA vol index: 30.2 ml/m2 RVD1 (basal): 3.7 cm TAPSE_phl: 2.1 cm Doppler Measurements & Calculations LVOT Max Keenan: 108.0 cm/sec MV E max keenan: 87.8 cm/sec LV V1 max P.7 mmHg MV A max keenan: 58.3 cm/sec LV V1 VTI: 22.7 cm MV E/A: 1.5 Med Peak E' Keenan: 9.0 cm/sec E/E' med: 9.8 Lat Peak E' Keenan: 10.7 cm/sec E/E' lat: 8.2 E/e' average: 9.0 MV dec time: 0.26 sec SV(LVOT): 78.6 ml MV P1/2t-pr_phl: 75.0 msec Electronically signed by: See Singletary on Reading Physician:02/05/2022 11:40 AM
[2022-02-05 06:52] LABS: BUN Creatinine Ratio 19.8 (6-22); Blood Urea Nitrogen 20 mg/dL (9-20); Calcium 8.6 mg/dL (8.4-10.2); Carbon Dioxide 29 mmol/L (22-32); Chloride 104 mmol/L (98-107); Cholesterol 201 mg/dL (140-199); Estimated Glomerular Filt Rate > 60 mL/min (>60); Glucose 106 mg/dL (80-110); HDL Cholesterol 33 mg/dL (40-60); HEMOLYSIS < 15 (0-50); LDL Cholesterol Calculated 141 mg/dL (<100); Potassium 3.9 mmol/L (3.4-5.1); Sodium 139 mmol/L (137-145); Triglycerides 133 mg/dL (35-150)
--- NOTE | 2022-02-05 07:20 | PM.HP.1 ---
History of Present Illness History of Present Illness Date Patient Seen: 02/05/22 Time Patient Seen: 07:21 Chief complaint: thightness on chest & high blood pressure Narrative: 66-year-old male admitted via emergency department because of significant hypertension with chest pain. Patient has been struggling with hypertension despite aggressive treatment with escalating doses of medication. Patient was in [place] but experienced on Saturday morning (day of admission) the onset of some left-sided precordial chest discomfort describes it as a pressure or tightness. It lasted for maybe a couple hours and then dissipated. He decided he probably need to be checked out so drove himself back to [place] where he discover that his blood pressure was as high as it was He presented to the [facility] Emergency Department with that story and was evaluated. Other than finding him to be quite hypertensive in the 210/110 range essentially unremarkable workup including negative EKG and negative troponin x2. He was admitted for management of his hypertension as well as further evaluation probably to include stress testing. Overnight he is had no recurrence of his symptoms in his blood pressure is actually amazingly low for him in the 117 systolic range, despite no additional medication (beyond a nitroglycerin in the emergency department) Patient History Medical History Anxiety (07/10/16) Galvez's esophagus without dysplasia (11/22/15) Cataracts, bilateral (~2015) Essential hypertension (07/10/16) Essential tremor (12/08/14) Fractures H/O adenomatous polyp of colon Hearing loss Retinal detachment (~2015) Tinnitus Tubular adenoma (11/22/15) Surgical History No pertinent past surgical history Family & Social History Family History Father History of heart disease Mother Cancer Diabetes mellitus Hypertension Stroke Grandfather History of heart disease Social History: household members spouse Prior Living Arrangements House Safety & Behavioral: Feels Safe in Current Yes Environment Been Physically Hurt or No Threatened By a Person Tobacco & Substance use: Smoking Status Never smoker alcohol intake current alcohol intake frequency a few times a week Substance Use Type marijuana Meds Home Medications and Allergies Home Medications Medication Instructions Recorded Confirmed Type primidone 50 mg tablet 50 mg PO BEDTIME #90 tabs 11/16/21 02/04/22 Rx hydrochlorothiazide 25 mg tablet 25 mg PO DAILY #90 tabs 12/15/21 02/04/22 Rx amlodipine 10 mg tablet 10 mg PO DAILY #90 tabs 01/15/22 02/04/22 Rx atenolol 25 mg tablet 25 mg PO BID 02/04/22 02/04/22 History lisinopril 40 mg tablet 40 mg PO DAILY 02/04/22 02/04/22 History Allergies Allergy/AdvReac Type Severity Reaction Status Date / Time azithromycin [AZITHROMYCIN] Allergy Mild rash Verified 01/15/22 09:17 Review of Systems Review of Systems ROS: Yes All systems reviewed with the patient and are negative except as otherwise documented Exam Vital Signs (past 8 hours): - 02/05/22 02:00 02/05/22 06:00 Temperature 98.1 F 97.6 F Pulse Rate 57 L 62 Respiratory Rate 14 14 Blood Pressure 117/78 118/69 Pulse Oximetry 98 98 Oxygen Flow Rate 0 0 Oxygen Delivery Method Room Air Oxygen Flow Rate 0 Narrative Exam Narrative: Non ill-appearing middle-aged male who is up looking out the window and I enter his room to examine him. Alert oriented x3 in no obvious distress HEENT-unremarkable, normocephalic atraumatic Neck-no lymphadenopathy no bruits Lungs-clear anteriorly and posteriorly no wheezes no crackles good breath sounds Heart-regular rate and rhythm, no murmur, rub, or gallop. normal S1-S2 Abdomen-positive bowel tones, soft, nontender, nondistended, no hepatosplenomegaly, no masses palpable Neuro-normal to screening exam, gait not tested Extremities-no cyanosis clubbing or edema Objective Labs Result Diagrams: 02/04/22 13:56 02/05/22 06:20 Labs: Laboratory Results - last 24 hr 02/04/22 02/04/22 02/04/22 13:56 13:56 16:10 WBC 8.1 RBC 5.52 Hgb 16.5 Hct 48.0 MCV 87.0 MCH 30.0 MCHC 34.5 RDW 12.9 Plt Count 176 Neut % (Auto) 55.9 Lymph % (Auto) 34.2 [place] % (Auto) 7.4 Eos % (Auto) 1.8 L Baso % (Auto) 0.7 Neut # (Auto) 4500 Lymph # (Auto) 2800 [place] # (Auto) 600 Eos # (Auto) 100 Baso # (Auto) 100 Sodium 138 Potassium 3.3 L Chloride 102 Carbon Dioxide 27 BUN 20 Creatinine 0.86 Estimated GFR > 60 BUN/Creatinine Ratio 23.3 H Glucose 116 H Calcium 9.2 Total Bilirubin 0.5 AST 27 ALT 31 Alkaline Phosphatase 58 Total Creatine Kinase 155 117 CK-MB (CK-2) 1.69 1.25 CK-MB (CK-2) Rel Index 1.1 L 1.1 L Troponin I < 0.012 < 0.012 NT-Pro-B Natriuret Pep 96 Total Protein 7.4 Albumin 4.3 Globulin 3.1 Albumin/Globulin Ratio 1.4 Triglycerides Cholesterol LDL Cholesterol, Calc HDL Cholesterol Lipase 145 SARS-CoV-2 (PCR) 02/04/22 02/05/22 18:17 06:20 WBC RBC Hgb Hct MCV MCH MCHC RDW Plt Count Neut % (Auto) Lymph % (Auto) [place] % (Auto) Eos % (Auto) Baso % (Auto) Neut # (Auto) Lymph # (Auto) [place] # (Auto) Eos # (Auto) Baso # (Auto) Sodium 139 Potassium 3.9 Chloride 104 Carbon Dioxide 29 BUN 20 Creatinine 1.01 Estimated GFR > 60 BUN/Creatinine Ratio 19.8 Glucose 106 Calcium 8.6 Total Bilirubin AST ALT Alkaline Phosphatase Total Creatine Kinase CK-MB (CK-2) CK-MB (CK-2) Rel Index Troponin I NT-Pro-B Natriuret Pep Total Protein Albumin Globulin Albumin/Globulin Ratio Triglycerides 133 Cholesterol 201 H LDL Cholesterol, Calc 141 H HDL Cholesterol 33 L Lipase SARS-CoV-2 (PCR) Negative Assessment & Plan Assessment & Plan narrative: 1. Hypertension-patient quite hypertensive on presentation to the hospital despite maximum dose DANK-inhibitor maximum dose calcium channel michael a thiazide diuretic and probably near maximum dose beta-michael (with heart rate in the 50s). Since admission blood pressure for some reasons been much better at least overnight in the 117/78 range. He did have a hypotensive response to nitroglycerin in the emergency department that responded quite nicely to IV fluids, as usual. At this point I think he needs an echocardiogram need to continue monitoring blood pressure and he would benefit from stress testing. Given his severe hypertension I am very hesitant to discontinue his atenolol and therefore I think a pharmacological stress test is going to be necessary rather than exercise as I doubt with the beta-michael on board we will be able to get heart rate to targets. I doubt there is any significant obstructive coronary disease in any symptoms he is experienced are more likely related to his severe hypertension than anything else. We could undertake an evaluation for etiologies for his hypertension with 24 hour urine collection for pheochromocytoma or hyperaldosteronism etcetera. However that is difficult to do in hospital setting actually easier to do at home and will consider that as an outpatient 2. Essential tremor-continue patient's primidone Time Spent With Patient Critical Care time: I spent a total of [] minutes of critical care time on this patient's care today; this time is exclusive of procedural time. Quality VTE Deep Vein Thrombosis/Pulmonary Embolism Present on Admission: No
[2022-02-05 08:00] VITALS: BP 138/88; PULSE 55; RESP 15; TEMP 36.4; O2SAT 97
--- NOTE | 2022-02-05 08:09 | PC.NURSE ---
Addendum entered by Gloria Shah R.N. 02/05/22 14:33: Patient is visiting with his . He is doing well after blood pressure medication given. Addendum entered by Gloria Shah R.N. 02/05/22 13:28: Patients blood pressure 161/91 with pulse of 51. 40 mg of lisinopril given. Original Note: Patient is alert and oriented x4, he denies chest pain. Tele in place. VSS. Patient will have his stress test tomorrow. He is now on a heart healthy diet and may have caffeine until noon today. He will be npo after midnight, except for water.
[2022-02-05] MEDS: SODIUM CHLORIDE 0.9% FLUSH 10 ML IV ×2 (09:21→21:28)
[2022-02-05] MEDS: hydroCHLOROthiazide 25 MG TABLET PO (09:21)
[2022-02-05] MEDS: ASPIRIN EC 81 MG TABLET PO (09:21)
[2022-02-05] MEDS: atenoloL 25 MG TABLET PO ×2 (09:21→21:28)
[2022-02-05] MEDS: ENOXAPARIN 40 MG/0.4 ML SYRINGE SUBCUT (09:21)
--- NOTE | 2022-02-05 11:38 | CM.IDA ---
DCP Assessment Note Patient is 66 y/o male who presents to due to concern for chest pain and high blood pressure. Patient had recent PCP appt with Dr. Gimenez regarding hypertension concern on 02/02/22. Patient's PCP is Dr. Gimenez, patient has [employer] insurance. Patient has hx of essential hypertension and tremor. 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 Patient presents as A/Ox3, endorses independence with ADLs and states he drives his car. Patient endorses he resides at home with spouse. Patient denies any needs from WASTE PAPER HAMMERMILL OPERATOR and states he is hoping to d/c to home after scheduled stress test. Patient endorses he has regular f/u with PCP Dr. Gimenez. Per RN, stress test is scheduled for tomorrow as there is no availability for today. Plan: Patient to d/c to home upon medical clearance after stress test tomorrow, No DCP needs at this time upon d/c. SANDI Penaloza Discharge Planning/Care Management CM Discharge Assessment Start: 02/05/22 11:33 Freq: Status: Active Protocol: Document 02/05/22 11:34 LN (Rec: 02/05/22 11:36 LN [id number]) Discharge Planning Assessment Assigned Mica Machine Operator SANDI Wallace Advance Directives? No Advance Directives on File No History Provided By Patient,Medical Record Has Patient been admitted in last 30 No days? Prior Living Arrangements House Household Members spouse Type of transportation used prior to Drives own vehicle admit Independent with ADL's Yes Is patient alert and oriented? Yes Discharge Plan Home Referrals Initiated None needed Review Status In Process Please Provide Date Initial DC 02/05/22 Assessment Was Performed
[2022-02-05 12:00] VITALS: BP 160/78; PULSE 59; RESP 17; TEMP 36.6; O2SAT 98
[2022-02-05] MEDS: lisinopriL 20 MG TABLET 40 MG PO (13:27)
[2022-02-05 16:00] VITALS: BP 160/94; PULSE 85; RESP 17; TEMP 36.6; O2SAT 95
[2022-02-05 20:05] VITALS: BP 151/80; PULSE 54; RESP 18; TEMP 36.5; O2SAT 95
[2022-02-05] MEDS: AMLODIPINE 5 MG TABLET 10 MG PO (21:28)
[2022-02-05] MEDS: PRIMIDONE 50 MG TABLET PO (21:28)
[2022-02-06] VITALS: BP 128/78; PULSE 54; RESP 18; TEMP 36.3; O2SAT 96
[2022-02-06 04:39] VITALS: BP 123/68; PULSE 53; RESP 18; TEMP 36.8; O2SAT 96
[2022-02-06 08:00] VITALS: BP 138/80; PULSE 54; RESP 18; TEMP 36.4; O2SAT 96
[2022-02-06] MEDS: ASPIRIN EC 81 MG TABLET PO (08:02)
[2022-02-06] MEDS: ENOXAPARIN 40 MG/0.4 ML SYRINGE SUBCUT (08:02)
[2022-02-06] MEDS: SODIUM CHLORIDE 0.9% FLUSH 10 ML IV (08:03)
--- NOTE | 2022-02-06 08:41 | PM.DS.1 ---
History of Present Illness History of Present Illness Date Patient Seen: 02/06/22 Time Patient Seen: 08:41 Chief complaint: thightness on chest & high blood pressure Narrative: 66-year-old male admitted via emergency department because of significant hypertension with chest pain. Patient has been struggling with hypertension despite aggressive treatment with escalating doses of medication. Patient was in [place] but experienced on Saturday morning (day of admission) the onset of some left-sided precordial chest discomfort describes it as a pressure or tightness. It lasted for maybe a couple hours and then dissipated. He decided he probably need to be checked out so drove himself back to [place] where he discover that his blood pressure was as high as it was He presented to the [facility] Emergency Department with that story and was evaluated. Other than finding him to be quite hypertensive in the 210/110 range essentially unremarkable workup including negative EKG and negative troponin x2. He was admitted for management of his hypertension as well as further evaluation probably to include stress testing. Overnight he is had no recurrence of his symptoms in his blood pressure is actually amazingly low for him in the 117 systolic range, despite no additional medication (beyond a nitroglycerin in the emergency department) Discharge Providers Provider Date of admission: 02/04/22 18:19 Discharge Date: 02/06/22 Primary care physician: Jarred Gimenez MD Discharge provider: Jarred Gimenez MD Summary Hospital Course Discharge Diagnosis: 1. Chest pain, likely related to elevated blood pressure 2. Malignant hypertension, resolved 3. Essential hypertension 4. Essential tremor 5. Generalized anxiety disorder Hospital Course: Patient was admitted with severe hypertension with numbers as noted in his admission documentation. Was also experiencing some chest symptoms but had a negative EKG and troponin. Echocardiography was performed which is entirely normal no evidence of any cardiovascular disease on his echocardiogram Given his persistent and severe hypertension it was felt to be important to perform stress testing without the need for discontinuation of any of his antihypertensives specifically his beta-blockers. Therefore patient underwent cardiac stress testing with myocardial perfusion imaging. This did not show evidence of any myocardial ischemia Patient's blood pressure during his hospitalization was actually fairly well controlled with maximum blood pressure being about 160 systolic. He was continued on his outpatient medications and as to why he was much better controlled during this hospitalization is unknown at this time. Patient be discharged on his usual medications as listed below with close follow-up in the outpatient setting. Status at Discharge Cognitive/behavioral status at discharge: at baseline, oriented Functional status at discharge: independent ambulation Overall status at discharge: patient is back to baseline Time Spent with Patient Time spent: Less than 30 minutes Exam Vital Signs (past 8 hours): - 02/06/22 04:39 02/06/22 08:00 Temperature 98.2 F 97.6 F Pulse Rate 53 L 54 L Respiratory Rate 18 18 Blood Pressure 123/68 138/80 Pulse Oximetry 96 96 Oxygen Flow Rate 0 Oxygen Delivery Method Room Air Oxygen Flow Rate 0 Objective Labs Result Diagrams: 02/04/22 13:56 02/05/22 06:20 [facility] Medical History Anxiety (07/10/16) Galvez's esophagus without dysplasia (11/22/15) Cataracts, bilateral (~2015) Essential hypertension (07/10/16) Essential tremor (12/08/14) Fractures H/O adenomatous polyp of colon Hearing loss Retinal detachment (~2015) Tinnitus Tubular adenoma (11/22/15) Surgical History No pertinent past surgical history Family History Father History of heart disease Mother Cancer Diabetes mellitus Hypertension Stroke Grandfather History of heart disease Social History household members: spouse Smoking Status: Never smoker alcohol intake: current Discharge Plan Discharge Plan Patient Disposition: Home Discharge orders & Medications Prescriptions: New atenolol 25 mg Tablet 25 mg PO BID Qty: 180 3RF Continued primidone 50 mg tablet 50 mg PO BEDTIME Qty: 90 3RF hydrochlorothiazide 25 mg tablet 25 mg PO DAILY Qty: 90 3RF amlodipine 10 mg tablet 10 mg PO DAILY Qty: 90 3RF lisinopril 40 mg tablet 40 mg PO DAILY Label Comments: take 1 tablet by mouth once daily Discontinued atenolol 25 mg tablet 25 mg PO BID Label Comments: take 1 tablet by mouth once daily Follow up/Referrals: Jarred Gimenez MD [Primary Care Provider] - 2 Weeks Discharge Health Status Multidrug resistant organism: No MDRO Diet/Activity/Treatments Diet: Diet as Tolerated Discharge Data Primary Care Provider: Jarred Gimenez Attending Provider: Jarred Gimenez Quality VTE Deep Vein Thrombosis/Pulmonary Embolism Present on Admission: No
[2022-02-06 12:38] VITALS: BP 135/85; PULSE 67; RESP 16; TEMP 36.7; O2SAT 95
--- NOTE | 2022-02-06 21:39 | DI.NM.S_ITS ---
DATE OF SERVICE: 02/06/2022 PROCEDURE: Exercise perfusion study. INDICATION: Chest pain with underlying hypertension. CARDIAC STRESS: The patient underwent exercise perfusion study under the supervision of an attending staff. The patient walked on Tyler protocol for 10 minutes and 05 seconds, achieved 85 percent of target heart rate and normal hemodynamic response. Peak blood pressure 174/88 and resting blood pressure 130/90. JYOTI -24 percent. Baseline rhythm was sinus. During stress, no convincing ischemic changes seen. Occasional PACs. No chest discomfort. Had some shortness of breath. RAW DATA: There is increased subdiaphragmatic activity. Diaphragmatic shadow seen. Weight is about 220 pounds. GATED STUDY: Stress LV ejection fraction 77 percent without any obvious wall motion abnormalities. Stress end-diastolic volume 115 mL. Lung/heart ratio 0.25, which is within normal limits. TID ratio 0.71, which is within normal limits. MYOCARDIAL PERFUSION SCAN: Stress supine, resting supine and stress prone images were compared to each other. Stress supine and resting supine images revealed moderate-size, moderate to severely decreased perfusion of base to mid inferior wall extending into the base to mid inferoseptum, which got significantly improved during stress prone images, suggestive of diaphragmatic tissue attenuation artifact. No convincing reversible ischemia or infarction pattern seen. CONCLUSION: I will call this study a normal myocardial perfusion study with evidence of diaphragmatic tissue attenuation artifact, which got improved during stress prone images. Excellent exercise tolerance. Normal hemodynamic response. Functional aerobic impairment -24 percent. No ischemic electrocardiographic changes. No anginal symptoms. Overall, low-risk exercise perfusion study. Manoj Aguilar - JITENDRA/mason/filiberto doc#: [id number]/job#: [id number] dd: 02/06/2022 12:57:00 dt: 02/06/2022 21:28:00 DICTATING MD/COPIES TO: Anupam Gaspar MD COPIES MNE: ANDREY;
== END 2022-02-06 14:18 | disposition home or self-care (01) ==
LOC: ED 18:19 → AC 18:20
PROVIDERS: Admitting Provider Family Medicine; Emergency Provider Emergency Medicine; PCP Internal Medicine; Referring Provider Emergency Medicine; Visit Provider Internal Medicine
DX: R07.9 Chest pain, unspecified (principal); I10 Essential (primary) hypertension; G25.0 Essential tremor; F41.9 Anxiety disorder, unspecified; Z20.822 Contact with and (suspected) exposure to COVID-19
CPT/HCPCS: 36415; 71045; 78452; 80048; 80053; 80061; 82550; 82553; 83690; 83880; 84484; 85025; 87635; 93005; 93017; 93306; 96360; 96361; 96372; 99217; 99219; 99284; C9803; G0378; A9502; J1650

== ENCOUNTER 2022-07-03 12:22 | Day surgery (SDC) | payer OTHER, SELFPAY ==
[2022-02-04 20:52] VITALS: BMI 29.8
--- NOTE | 2022-07-03 | PATH_ITS ---
[facility] Accession Number: [id number] No. of containers..01 Tissue . 01 Material submitted: . esophagus, E-G Junction - GE JUNCTION BIOPSY . 01 Diagnosis: Gastroesophageal Junction, Biopsy: Squamous epithelium with no diagnostic abnormality. Intraepithelial eosinophils are not increased. Negative for dysplasia and malignancy. MRV 07/09/2022 1531 Local . 01 Electronically signed: . Jaylene Sandoval MD, Pathologist NPI- [id number] . 01 Gross description: . GE JUNCTION BIOPSY: Received in formalin is 1 fragment(s) of camacho, soft tissue measuring 0.2 x 0.1 x 0.1 cm submitted entirely in 1 cassette(s) /CPE 07/05/2022 0624 Local . 01 Pathologist provided ICD-10: R10.13 . 01 CPT . 694541 Specimen Comment: A courtesy copy of this report has been sent to [phone] Performed at: 01 [facility] [address] [place] [address] [address], [place], [place] [id number] MD Vinay Mantilla MD Phone: [phone]
[2022-07-03 12:44] VITALS: BMI 27.6
[2022-07-03 12:58] VITALS: BP 109/73; PULSE 64; RESP 17; TEMP 36.4; O2SAT 95
[2022-07-03] MEDS: LACTATED RINGERS 1,000 ML 200 ML IV (13:09)
--- NOTE | 2022-07-03 13:20 | PM.HP.1 ---
History of Present Illness History of Present Illness Date Patient Seen: 07/03/22 Time Patient Seen: 13:20 Chief complaint: SDC Narrative: 67-year-old man with a history of colonic polyps and Galvez's esophagus without dysplasia here for screening EGD and colonoscopy. No interval changes in health. Please refer to the H and P from May 2022 for further detail [facility] Medical History Anxiety (07/10/16) Galvez's esophagus without dysplasia (11/22/15) Cataracts, bilateral (~2015) Essential hypertension (07/10/16) Essential tremor (12/08/14) Fractures H/O adenomatous polyp of colon Hearing loss Retinal detachment (~2015) Tinnitus Tubular adenoma (11/22/15) Surgical History No pertinent past surgical history Family History Father History of heart disease Mother Cancer Diabetes mellitus Hypertension Stroke Grandfather History of heart disease Social History marital status: household members: spouse lives independently: Yes occupational status: employed Smoking Status: Never smoker alcohol intake: current Meds Home Medications and Allergies Home Medications Medication Instructions Recorded Confirmed Type primidone 50 mg tablet 50 mg PO BEDTIME #90 tabs 11/16/21 07/03/22 Rx hydrochlorothiazide 25 mg tablet 25 mg PO DAILY #90 tabs 12/15/21 07/03/22 Rx amlodipine 10 mg tablet 10 mg PO DAILY #90 tabs 01/15/22 07/03/22 Rx lisinopril 40 mg tablet 40 mg PO DAILY 02/04/22 07/03/22 History atenolol 25 mg tablet 25 mg PO BID #180 tabs 02/06/22 07/03/22 Rx clotrimazole-betamethasone 1 1 applic topical BID #45 grams 05/21/22 07/03/22 Rx %-0.05 % topical cream sildenafil (pulm.hypertension) 20 20 - 40 mg PO Q24H PRN sexual 05/21/22 07/03/22 Rx mg tablet activity #45 tabs Allergies Allergy/AdvReac Type Severity Reaction Status Date / Time azithromycin [AZITHROMYCIN] Allergy Mild rash Verified 07/03/22 12:39 Exam Vital Signs (past 8 hours): - 07/03/22 12:58 Temperature 97.6 F Pulse Rate 64 Respiratory Rate 17 Blood Pressure 109/73 Pulse Oximetry 95 Oxygen Delivery Method Room Air Oxygen Delivery Method Room Air Narrative Exam Narrative: General adult man alert oriented no acute distress Assessment & Plan Assessment and plan (1) Galvez's esophagus without dysplasia: Status: Chronic (2) H/O adenomatous polyp of colon: Status: Chronic Assessment & Plan narrative: 67-year-old man history of Galvez's esophagus without dysplasia and colonic polyps here for screening esophagoduodenoscopy and colonoscopy. Technical details were discussed. Risks, benefits, alternatives explained. Risks including but not limited to myocardial infarction, aspiration, bleeding, pain, missed lesion, incomplete examination, need for further radiographic studies, intestinal perforation, and need for major abdominal surgery were discussed. All questions were answered to their satisfaction, and they are in agreement with this plan.
[2022-07-03 14:19] VITALS: BP 99/66; PULSE 65; RESP 15; TEMP 36.3; O2SAT 95
--- NOTE | 2022-07-03 14:19 | PM.OP.EC ---
Operative Date/Time/Diagnoses Date of procedure: 07/03/22 Time of procedure: 14:19 Pre-op diagnosis: History of Galvez's esophagus without dysplasia. Personal history of colonic polyps. Post-op diagnosis: same Procedure & Clinicians Study performed: Esophagoduodenoscopy and colonoscopy Same procedure as scheduled: Yes Indications: Personal history of colonic polyps. History of Galvez's esophagus without dysplasia. Surgeon: Fabio Rossi Procedure Notes Procedure in detail: The history and physical was performed/updated and the patient is ASA class is 2. The procedure was discussed in detail with the patient. Potential risks complications including infection, bleeding, missed diagnosis, perforation, need for surgery, and were explained. Their questions were answered and informed consent was obtained. Patient placed in left lateral decubitus position. Time out was performed. Procedural sedation was administered by Anesthesia. A bite block was placed. the scope was inserted into the mouth and advanced through the esophagus and into the stomach. The stomach was without masses, ulcers or gastritis. The pylorus was intubated and the duodenum was normal to the 2nd portion. The scope was retroflexed within the stomach and there no hiatal hernia. The scope was withdrawn into the esophagus the Z line was seen at 35 cm from the incisions. There was no Galvez's esophagitis, esophageal masses or strictures. Biopsy of the GE junction was performed with forceps. Stomach was desufflated and scope removed. Examination began with a thorough inspection of the perianal area there was no evidence of fissures, fistulae, external hemorrhoids or cutaneous malignancy. The colonoscopy scope was then placed into the anal canal and was advanced to the cecum, which was identified by the ileocecal valve, the appendiceal orifice and the confluence of the taenia. The scope was then slowly withdrawn examining colon thoroughly in all directions, irrigating it of any residual stool. Examination of the colon was unremarkable. No masses polyps or significant inflammation. Retroflexion within the rectum demonstrated internal hemorrhoids The patient tolerated the procedure well. They will be discharged once criteria are met. The prep was of good/excellent quality. The withdrawl time was 6minutes. Specimen(s): other (GE junction) Impression: Normal colonoscopy and esophagoduodenoscopy. Post-procedure Recommendations: Colonscopy in 10 years and High fiber diet Disposition: same day surgery
[2022-07-03 14:24] VITALS: BP 96/63; PULSE 58; RESP 12; O2SAT 96
[2022-07-03 14:29] VITALS: BP 99/60; PULSE 54; RESP 15; O2SAT 95
[2022-07-03 14:34] VITALS: BP 112/74; PULSE 68; RESP 18; TEMP 36.1; O2SAT 96
[2022-07-03 14:50] VITALS: BP 124/72; PULSE 70; RESP 14; TEMP 36.1; O2SAT 98
== END 2022-07-03 15:00 | disposition home or self-care (01) ==
PROVIDERS: PCP Internal Medicine; Referring Provider Surgery; Visit Provider Surgery
PROC: 0DJ08ZZ Inspection of Upper Intestinal Tract, Via Natural or Artificial Opening Endoscopic (ICD-10-PCS; CPT 43235; principal; 2022-07-03 13:15)
PROC: 0DJD8ZZ Inspection of Lower Intestinal Tract, Via Natural or Artificial Opening Endoscopic (ICD-10-PCS; CPT 45378; 2022-07-03 13:15)
DX: Z12.11 Encounter for screening for malignant neoplasm of colon (principal); Z86.010 Personal history of colon polyps; K64.8 Other hemorrhoids; Z87.19 Personal history of other diseases of the digestive system
CPT/HCPCS: 45378; 43239; J2704

== ENCOUNTER → 2023-01-31 07:11 | Outpatient (CLI) | payer OTHER, SELFPAY ==
[2022-02-04 20:52] VITALS: BMI 29.8
[2023-01-31 09:20] LABS: Hemoglobin A1C% w Est Avg Glu 5.2 % (4.0-6.0)
[2023-01-31 09:23] LABS: Alanine Aminotransferase 18 IU/L (<50); Albumin 3.8 g/dL (3.5-5.0); Albumin Globulin Ratio 1.5 (1.0-2.8); Alkaline Phosphatase 42 U/L (38-126); Aspartate Aminotransferase 21 IU/L (17-59); BUN Creatinine Ratio 21.7 (6-22); Bilirubin Total 0.7 mg/dL (0.2-1.3); Blood Urea Nitrogen 20 mg/dL (9-20); Calcium 9.6 mg/dL (8.4-10.2); Carbon Dioxide 29 mmol/L (22-32); Chloride 103 mmol/L (98-107); Cholesterol 203 mg/dL (140-199); Estimated Glomerular Filt Rate > 60 mL/min (>60); Globulin 2.6 g/dL (1.7-4.1); Glucose 103 mg/dL (80-110); HDL Cholesterol 41 mg/dL (40-60); HEMOLYSIS < 15 (0-50); LDL Cholesterol Calculated 141 mg/dL (<100); Potassium 3.8 mmol/L (3.4-5.1); Sodium 139 mmol/L (137-145); Total Protein 6.4 g/dL (6.3-8.2); Triglycerides 107 mg/dL (35-150)
[2023-01-31 09:50] LABS: Prostate Specific Antigen Scrn 0.838 ng/mL (0.1-4.0)
== END ==
PROVIDERS: PCP Internal Medicine; Referring Provider Internal Medicine; Visit Provider Internal Medicine
DX: Z12.5 Encounter for screening for malignant neoplasm of prostate (principal); I10 Essential (primary) hypertension; R73.9 Hyperglycemia, unspecified
CPT/HCPCS: 36415; 80053; 80061; 83036; G0103